=== PATIENT | male | born 1950 | race Caucasian/White ===

== ENCOUNTER 2020-08-28 08:22 | Emergency (ER) | payer MEDICARE, SELFPAY ==
--- NOTE | 2020-08-28 | ECG_ITS ---
Test Reason : CHEST PAIN Blood Pressure : / mmHG Vent. Rate : 081 BPM Atrial Rate : 081 BPM P-R Int : 158 ms QRS Dur : 086 ms QT Int : 366 ms P-R-T Axes : 024 -29 024 degrees QTc Int : 425 ms Normal sinus rhythm Normal ECG When compared with ECG of 04-JUN-2014 12:46, Nonspecific T wave abnormality has replaced inverted T waves in Inferior leads Referred By: Generic ED Physician Electronically Signed By:Per Mcdonald
--- NOTE | ~2020-08-28 | XR_ITS ---
EXAMINATION: XR CHEST CLINICAL INFORMATION: Chest pain/SOB COMPARISON: None TECHNIQUE: 2 views of the chest were obtained. FINDINGS: No significant abnormality is noted involving the heart, lungs, mediastinum, bony thorax or soft tissues. XR/XR chest 2V IMPRESSION: Unremarkable chest examination.
[2020-08-28 08:34] VITALS: BP 199/87; PULSE 101; TEMP 36.8; O2SAT 95; BMI 34.9
[2020-08-28 09:10] LABS: MANUAL DIFF FLAG NO
[2020-08-28 09:11] LABS: Basophils Percent Auto 0.5 % (0-2); Eosinophils Absolute Auto 0.1 X10*3/uL (0.0-0.4); Eosinophils Percent Auto 2.2 % (0-4); Hematocrit 44.7 % (42-52); Hemoglobin 15.4 g/dl (14.0-18.0); Imm Gran Abs Auto 0.01 X10*3/uL (0.00-0.03); Imm Gran Pct Auto 0.2 % (0.0-0.4); Lymphocytes Absolute Auto 1.1 X10*3/uL (1.2-4.9); Mean Corpuscular HGB Conc 34.5 g/dl (31.0-36.0); Mean Corpuscular Hemoglobin 30.1 pg (27.0-33.0); Mean Corpuscular Volume 87.3 fL (80-98); Mean Platelet Volume 10.3 fL (9.4-12.4); Monocytes Absolute Auto 0.4 X10*3/uL (0.1-1.2); Monocytes Percent Auto 9.6 % (2-11); Neutrophils Absolute Auto 2.6 X10*3/uL (2.0-8.3); Neutrophils Percent Auto 61.5 % (45-73); Platelet Count 152 X10*3/uL (160-400); Red Blood Count 5.12 X10*6/uL (4.60-5.80); Red Cell Distribution Width 12.1 % (11.0-16.0); White Blood Count 4.2 X10*3/uL (4.8-10.8)
[2020-08-28 09:22] VITALS: BP 160/79
[2020-08-28 09:35] LABS: Alanine Aminotransferase 19 U/L (0-40); Albumin Level 4.2 g/dL (3.5-5.0); Alkaline Phosphatase 46 U/L (39-117); Anion Gap 13 (12-20); Aspartate Amino Transferase 19 U/L (5-37); Bilirubin Direct 0.3 mg/dL (0.0-0.5); Bilirubin Total 0.7 mg/dL (0.0-1.0); Blood Urea Nitrogen 19 mg/dL (9-16); Calcium 9.6 mg/dL (8.4-10.2); Carbon Dioxide 25 mmol/L (22-29); Chloride 107 mmol/L (96-108); Creatinine Clr Calc Pharmacy 70.9; Estimated Glomerular Filt Rate 51; Glucose Random 137 mg/dL (60-115); Magnesium 2.2 mg/dL (1.6-2.6); Potassium 4.2 mmol/L (3.3-5.1); Sodium 141 mmol/L (135-145); Total Protein 7.1 g/dL (6.5-8.0)
[2020-08-28 09:38] LABS: B Type Natriuretic Peptide 68 pg/mL (<100); Troponin-I High Sensitivity 11.4 ng/L (<3.5-35.0)
--- NOTE | 2020-08-28 10:10 | ED_ITS ---
HPI - General Adult General Chief complaint: Dyspnea Stated complaint: Chest pain Time Seen by Provider: 08/28/20 08:34 Source: patient Mode of arrival: ambulatory History of Present Illness HPI narrative: 70-year-old male a past medical history of HTN, appendectomy, presenting to the ED complaining of left-sided chest tightness and SOB beginning last night. Admits symptoms improved at present. Reports believe symptoms related to increased stress at home due to taking care of father/[id number]. Denies fever, chills, cough, radiation of pain, nausea, vomiting, recent travel, LE edema, history of blood clots Onset (ago): day(s) Related Data Allergies Allergy/AdvReac Type Severity Reaction Status Date / Time No Known Allergies Allergy Unverified 10/29/19 14:35 Review of Systems Review of Systems: Constitutional: No Fever, No Chills, No Fatigue, No Malaise Cardiovascular: + Chest Pain, + SOB, No Dyspnea on Exertion, No Orthopnea, No Edema Respiratory: No Cough, No Sputum, No Wheezing Gastrointestinal: No Nausea, No Vomiting, No Abdominal pain Genitourinary: No Dysuria, No Urinary Frequency, No Hematuria, No Urgency, No Flank Pain Musculoskeletal: No joint pain, No Myalgias, No Joint Swelling Skin: No Skin Lesions, No rash Neuro: No Weakness, No Numbness, No Paresthesias Yes all other systems are reviewed and are negative [facility] Past Medical History Attestation statement: The following information was validated with the patient. Medical History (Updated 08/28/20 @ 12:37 by BRIJESH Vásquez) Appendicitis Hypertension Social History Social History Patient Tobacco Use Status: Never used Tobacco Use of substances other than those prescribed or required for medical reasons: No Advance Directives: No Advance Directives Information Provided: No Physical Exam Vital Signs: Vital Signs: Last Vital Signs Temp 98.1 F 08/28/20 11:55 Pulse 62 08/28/20 11:55 Resp 14 08/28/20 11:55 BP 150/76 H 08/28/20 11:55 Pulse Ox 95 08/28/20 11:55 Body Mass Index 34.9 Const: General: cooperative, healthy appearing and no acute distress Orientation/consciousness: patient oriented x3 Limitations: no limitations HENMT: Head: Yes normal to inspection Ears: hearing grossly normal bilaterally General nose exam: Normal external nose present Face and sinus: Yes normal facial exam Eyes: General: appearance normal, both eyes and all related structures EOM: EOMs intact bilaterally Neck: Neck: Yes normal visual inspection Resp: Effort & Inspection: normal respiratory effort Auscultation: clear to auscultation bilaterally, no rales, no rhonchi and no wheezes Cardio: Rate: regular rate Heart sounds: S1 normal heart sound present and S2 normal heart sound present GI: Inspection: Yes normal to inspection Palpation (GI): Soft to palpation, nontender, no guarding and not rigid Skin: Rashes: no rashes Wounds: no wounds Neuro: General: patient oriented x3 Extrem: General: Yes normal to inspection and Yes no pedal edema Course Course Course Narrative: -leukopenia of 4.2, H&H stable troponin 11.4 will obtain 3 nora r repeat -Subsequent troponin 12.5, no 50% rise NV unlikely XR chest 2V IMPRESSION: Unremarkable chest examination. -1236--results discussed with patient, denies chest pain at present. Worrisome signs and symptoms and strict return precautions discussed, he verbalized understanding and is safe for discharge home to follow-up with PCP/cardiology Medical Decision Making MDM Narrative Medical decision making narrative: 70-year-old male a past medical history of HTN, appendectomy, presenting to the ED complaining of left-sided chest tightness and SOB beginning last night. Admits symptoms improved at present. On exam slightly tachycardic, anxious, NAD/nontoxic, lungs CTA, no pedal edema or calf tenderness. Concern for ACS vs anxiety. Low concern for CHF, pneumonia. Plan: EKG, labs, CXR, reassess Lab Data Result diagrams: 08/28/20 09:05 08/28/20 09:05 Labs: Lab Results 08/28/20 08/28/20 08/28/20 Range/Units 09:05 09:05 09:05 WBC 4.2 L (4.8-10.8) X10*3/uL RBC 5.12 (4.60-5.80) X10*6/uL Hgb 15.4 (14.0-18.0) g/dl Hct 44.7 (42-52) % MCV 87.3 (80-98) fL MCH 30.1 (27.0-33.0) pg MCHC 34.5 (31.0-36.0) g/dl RDW 12.1 (11.0-16.0) % Plt Count 152 L (160-400) X10*3/uL MPV 10.3 (9.4-12.4) fL Immature Gran % (Auto) 0.2 (0.0-0.4) % Neut % (Auto) 61.5 (45-73) % Lymph % (Auto) 26.0 (20-40) % [place] % (Auto) 9.6 (2-11) % Eos % (Auto) 2.2 (0-4) % Baso % (Auto) 0.5 (0-2) % Lymph # (Auto) 1.1 L (1.2-4.9) X10*3/uL [place] # (Auto) 0.4 (0.1-1.2) X10*3/uL Eos # (Auto) 0.1 (0.0-0.4) X10*3/uL Baso # (Auto) 0.0 (0.0-0.2) X10*3/uL Abs Immat Gran (auto) 0.01 (0.00-0.03) X10*3/uL Absolute Neuts (auto) 2.6 (2.0-8.3) X10*3/uL Absolute Nucleated RBC 0.000 (0.0-0.012) X10*3/uL Nucleated RBC % (auto) 0.0 (0.0-0.2) /100WBC Sodium 141 (135-145) mmol/L Potassium 4.2 (3.3-5.1) mmol/L Chloride 107 (96-108) mmol/L Carbon Dioxide 25 (22-29) mmol/L Anion Gap 13 (12-20) BUN 19 H (9-16) mg/dL Creatinine 1.39 (0.5-1.4) mg/dL Estim Creat Clear Calc 70.9 Estimated GFR 51 Random Glucose 137 H (60-115) mg/dL Calcium 9.6 (8.4-10.2) mg/dL Magnesium 2.2 (1.6-2.6) mg/dL Total Bilirubin 0.7 (0.0-1.0) mg/dL Direct Bilirubin 0.3 (0.0-0.5) mg/dL AST 19 (5-37) U/L ALT 19 (0-40) U/L Alkaline Phosphatase 46 (39-117) U/L Troponin I High Sens 11.4 (<3.5-35.0) ng/L B-Natriuretic Peptide 68 (<100) pg/mL Total Protein 7.1 (6.5-8.0) g/dL Albumin 4.2 (3.5-5.0) g/dL 08/28/20 Range/Units 11:59 WBC (4.8-10.8) X10*3/uL RBC (4.60-5.80) X10*6/uL Hgb (14.0-18.0) g/dl Hct (42-52) % MCV (80-98) fL MCH (27.0-33.0) pg MCHC (31.0-36.0) g/dl RDW (11.0-16.0) % Plt Count (160-400) X10*3/uL MPV (9.4-12.4) fL Immature Gran % (Auto) (0.0-0.4) % Neut % (Auto) (45-73) % Lymph % (Auto) (20-40) % [place] % (Auto) (2-11) % Eos % (Auto) (0-4) % Baso % (Auto) (0-2) % Lymph # (Auto) (1.2-4.9) X10*3/uL [place] # (Auto) (0.1-1.2) X10*3/uL Eos # (Auto) (0.0-0.4) X10*3/uL Baso # (Auto) (0.0-0.2) X10*3/uL Abs Immat Gran (auto) (0.00-0.03) X10*3/uL Absolute Neuts (auto) (2.0-8.3) X10*3/uL Absolute Nucleated RBC (0.0-0.012) X10*3/uL Nucleated RBC % (auto) (0.0-0.2) /100WBC Sodium (135-145) mmol/L Potassium (3.3-5.1) mmol/L Chloride (96-108) mmol/L Carbon Dioxide (22-29) mmol/L Anion Gap (12-20) BUN (9-16) mg/dL Creatinine (0.5-1.4) mg/dL Estim Creat Clear Calc Estimated GFR Random Glucose (60-115) mg/dL Calcium (8.4-10.2) mg/dL Magnesium (1.6-2.6) mg/dL Total Bilirubin (0.0-1.0) mg/dL Direct Bilirubin (0.0-0.5) mg/dL AST (5-37) U/L ALT (0-40) U/L Alkaline Phosphatase (39-117) U/L Troponin I High Sens 12.5 (<3.5-35.0) ng/L B-Natriuretic Peptide (<100) pg/mL Total Protein (6.5-8.0) g/dL Albumin (3.5-5.0) g/dL ECG Data Attestation: I personally reviewed and interpreted this ECG as follows: Interpretation: EKG normal sinus rhythm with a rate of 81. QTC 425. 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
[2020-08-28 10:35] VITALS: BP 165/75
[2020-08-28 11:55] VITALS: BP 150/76; PULSE 62; RESP 14; TEMP 36.7; O2SAT 95
[2020-08-28 12:29] LABS: Troponin-I High Sensitivity 12.5 ng/L (<3.5-35.0)
== END 2020-08-28 12:47 | disposition home or self-care (01) ==
PROVIDERS: Physician Assistant; Emergency Provider Emergency Medicine; PCP Internal Medicine
DX: R07.9 Chest pain, unspecified (principal); R06.00 Dyspnea, unspecified; I10 Essential (primary) hypertension; Z79.899 Other long term (current) drug therapy
CPT/HCPCS: 36415; 71046; 80048; 80076; 83735; 83880; 84484; 85025; 93005; 99284

== ENCOUNTER 2020-10-20 06:48 | Outpatient (REF) | payer MEDICARE, SELFPAY ==
[2020-10-20 11:11] LABS: Basophils Percent Auto 0.5 % (0-2); Eosinophils Absolute Auto 0.1 X10*3/uL (0.0-0.4); Eosinophils Percent Auto 2.8 % (0-4); Hematocrit 44.3 % (42-52); Hemoglobin 15.2 g/dl (14.0-18.0); Imm Gran Abs Auto 0.01 X10*3/uL (0.00-0.03); Imm Gran Pct Auto 0.2 % (0.0-0.4); Lymphocytes Absolute Auto 1.5 X10*3/uL (1.2-4.9); Lymphocytes Percent Auto 34.2 % (20-40); MANUAL DIFF FLAG NO; Mean Corpuscular HGB Conc 34.3 g/dl (31.0-36.0); Mean Corpuscular Hemoglobin 30.2 pg (27.0-33.0); Mean Corpuscular Volume 88.1 fL (80-98); Monocytes Absolute Auto 0.5 X10*3/uL (0.1-1.2); Monocytes Percent Auto 11.2 % (2-11); Neutrophils Absolute Auto 2.2 X10*3/uL (2.0-8.3); Neutrophils Percent Auto 51.1 % (45-73); Platelet Count 156 X10*3/uL (160-400); Red Blood Count 5.03 X10*6/uL (4.60-5.80); Red Cell Distribution Width 12.8 % (11.0-16.0); White Blood Count 4.3 X10*3/uL (4.8-10.8)
[2020-10-20 11:31] LABS: Appearance Urine HAZY; Color Urine YELLOW; Glucose Urine UA NEG (NEG); Leukocyte Esterase Urine NEG (NEG); Nitrite Urine NEG (NEG); Specific Gravity - Urine >= 1.030 (1.005-1.025); Urine Blood 3+ (NEG); Urine Ketones NEG (NEG); Urine Protein NEG (NEG-TRACE)
[2020-10-20 11:37] LABS: Alanine Aminotransferase 21 U/L (0-40); Albumin Level 4.2 g/dL (3.5-5.0); Alkaline Phosphatase 45 U/L (39-117); Anion Gap 13 (12-20); Aspartate Amino Transferase 22 U/L (5-37); Bilirubin Total 0.7 mg/dL (0.0-1.0); Blood Urea Nitrogen 17 mg/dL (9-16); Calcium 9.6 mg/dL (8.4-10.2); Carbon Dioxide 24 mmol/L (22-29); Chloride 107 mmol/L (96-108); Cholesterol 131 mg/dL; Estimated Glomerular Filt Rate 53; Glucose Fasting 99 mg/dL (60-99); HDL Cholesterol 41 mg/dL; LDL Cholesterol Calculated 54 mg/dl; Potassium 4.1 mmol/L (3.3-5.1); Sodium 140 mmol/L (135-145); Total Protein 6.8 g/dL (6.5-8.0); Triglycerides 184 mg/dL
[2020-10-20 11:56] LABS: Squamous Epithelial Cell Urine TRACE /LPF; WBC Urine 0 /HPF (0-4)
[2020-10-20 11:57] LABS: Mucus Urine 3+ /LPF
[2020-10-20 12:05] LABS: Thyroid Stimulating Hormone 3.07 uIU/mL (0.32-4.0); Vitamin D 25-OH Total 47.6 ng/mL (>30)
[2020-10-20 12:34] LABS: PSA,Total (Free>4and<10) 1.04 ng/mL (0.00-4.00)
== END 2020-10-20 06:49 | disposition home or self-care (01) ==
LOC: HO.HMGCLDS 06:48
PROVIDERS: PCP Internal Medicine; Visit Provider Internal Medicine
DX: Z12.5 Encounter for screening for malignant neoplasm of prostate (principal); R07.9 Chest pain, unspecified; E78.00 Pure hypercholesterolemia, unspecified; E55.9 Vitamin D deficiency, unspecified; I10 Essential (primary) hypertension
CPT/HCPCS: 36415; 80053; 80061; 81001; 82306; 84153; 84443; 85025

== ENCOUNTER → 2020-11-15 13:49 | Outpatient (BNVA) | payer MEDICARE, SELFPAY | PROVIDERS: PCP Internal Medicine; Visit Provider Internal Medicine | DX: I10 Essential (primary) hypertension (principal); R07.2 Precordial pain | CPT/HCPCS: 99202 ==

== ENCOUNTER → 2021-01-09 08:11 | Outpatient (REF) | payer MEDICARE, SELFPAY ==
--- NOTE | ~2021-01-09 | NM_ITS ---
Exercise Myocardial perfusion study Indication: Precordial chest pain Technique: The patient was brought in for an exercise perfusion study on 01/09/2021. Patient performed exercise as per Lukas protocol and was injected 45 mCi of sestamibi was given intravenously one target HR was achieved. Images were obtained using the SPECT gamma camera interlaced with the gating device. Images were obtained in supine position. Resting perfusion study was performed on 01/10/2021. Patient was administered 45 mCi of sestamibi intravenously at rest. Images were then obtained in supine position. Images obtained with and without CT attenuation. Total DLP 117 mGy-cm. Images were processed with the software and compared side to side in short axis, horizontal long axis and vertical long axis views. Findings: The stress perfusion study showed non attenuated images show moderately reduced uptake in the basal inferior and basal septal wall of the LV myocardium. Remainder of the LV myocardium attenuation corrected show normal uptake of tracer in all segments of LV myocardium. The gated study shows normal LV systolic function with calculated LVEF of 71%. LV cavity is normal in size. The gated study shows normal systolic wall thickening and contraction of all segments. There is no transient ischemic dilation. Resting study shows non attenuated images show mildly reduced uptake in the entire inferior wall of the LV myocardium. Remainder of the LV myocardium is normally perfused. Attenuation corrected images show mildly reduced uptake in the apex of the LV myocardium. Gating at rest reveals normal systolic wall motion with ejection fraction at 62%. The findings are consistent with normal myocardial perfusion. NM/NM cardiolite stress test Impression: 1. Normal myocardial perfusion 2. Gated LVEF is 62% 3. Transient ischemic dilatation not present Stress EKG is negative for ischemia
--- NOTE | 2021-01-09 08:15 | CA_ITS ---
Acquisition Time: 2021-01-09 08:20:40 Total Exercise Time: 00:05:00 Test Indications: CP Medications: SEE CHART Protocol: KATHY Max HR: 144 BPM 96% of Pred: 150 BPM Max BP: 172/078 mmHG Max Work Load: 7.0 METS Exercise stress test with exercise 5 min of Kathy protocol, without anginal symptoms, with frequent PVCs, ventricular cuplets, one 5 beat NSVT, runs of ventricular bigeminy, with normotensive response to exercise, without EKG changes meeting criteria for ischemia. Nuclear images pending. Test reviewed with Dr Danielson. Referred By: Kal Danielson Overread By: HAYDEN ANDERSON
== END ==
LOC: HO.CARD 08:11
PROVIDERS: Visit Provider Internal Medicine
DX: R07.2 Precordial pain (principal)
CPT/HCPCS: 78452; 93017; A9500

== ENCOUNTER → 2021-01-26 07:17 | Outpatient (REF) | payer MEDICARE, SELFPAY ==
--- NOTE | 2021-01-26 07:19 | CA_ITS ---
Transthoracic Echocardiogram Patient (Last, First, Middle): Angel Crowley R Gender: Male Date of : 1950 Age: 70 Procedure Date: 01/26/2021 Procedure Type: Transthoracic Echocardiogram Location: OP Height: 190.5 cm Weight: 122.47 kg BSA: 2.49 m2 Heart Rate: bpm BP: 140 / 68 mmHg Memorial Counselor: FLETCHER Referring MD: Kal Danielson MD Japanese Professor: Lamont Fox MD Symptoms: I10 - Essential (primary) hypertension Study Quality: Good ECG Rhythm: Sinus Conclusions: - 1. Normal LV systolic function with impaired relaxation filling pattern 2. Mild aortic regurgitation 3. Normal RV systolic pressure 4. Mildly dilated ascending aorta 5. No pericardial effusion Findings Left Ventricle Normal left ventricular size, thickness, and systolic function. The visually estimated ejection fraction is between 60-65%. Spectral Doppler is indicative of an impaired relaxation filling pattern. E/E prime ratio is between 8 and 15 consistent with indeterminate filling pressures. There is mild septal asymmetric hypertrophy. Right Ventricle Normal right ventricular cavity size and systolic function. Atria The left atrium is likely dilated. There is no evidence of interatrial shunt. The right atrium is normal in size. Aortic Valve The aortic valve structure and function is likely normal. There is no aortic valve stenosis. There is mild aortic valve regurgitation. Mitral Valve There is mild anterior and posterior mitral leaflet thickening. There is trace mitral valve regurgitation. There is no mitral valve stenosis. Pulmonic Valve The pulmonic valve was not well visualized. Tricuspid Valve Likely normal tricuspid valve structure and function. There is mild tricuspid valve regurgitation. The right ventricular systolic pressure is normal. The right ventricular systolic pressure is 28 mmHg. Normal right atrial pressure. There is no evidence of pulmonary hypertension. Great Vessels The pulmonary artery was not well visualized. There is mild dilatation of the ascending aorta measuring 3.80 cm. Venous The inferior vena cava is normal in size and collapses greater than 50% with inspiration. Pericardium/Pleural There is no evidence of pericardial effusion. Prior Study Comparison no previous study in the last 5 years for comparison Measurements 2D Linear Measurements IVSd: 1.20 0.6-0.9/0.6-1.0 cm LVIDd: 5.89 3.9-5.3/4.2-5.9 cm LVIDd Index: 2.37 2.4-3.2/2.2-3.1 cm/m2 LVIDs: 3.11 2.0-3.6 cm LVPWd: 1.06 0.7-1.1 cm Ao Root: 3.30 2.1-3.5 cm LA Diam: 3.90 2.7-3.8/3.0-4.0 cm LAIDs Index: 1.57 1.5-2.3 cm/m2 LV Mass: 350.49 67-162/88-224 g LV Mass Index: 140.76 43-95/49-115 g/m2 LVOT Diam: 2.30 3.0+(-)1.3 cm 2D Systolic Function EF 4C: 61.90 >55% EF 2C: 75.30 >55% EF BiP: 68.30 >55% Mitral Valve MV Pk E: 0.53 MV PK A: 0.65 MV Decel Time: 201.00 E/A: 0.80 E'Lateral: 10.90 E'Medial: 7.07 E/E' Med: 7.50 E/E' Lat: 4.80 PHT: 59.00 MVA PHT: 3.73 Decel Coos: 2.63 Aortic Valve AoV Pk Sedrick: 1.74 AoV Pk Grad: 12.00 AI Pk Sedrick: 3.57 AI Coos: 1.65 LVOT LVOT Pk Sedrick: 1.25 LVOT Mn Sedrick: 0.90 LVOT VTI: 0.27 LVOT Pk Grad: 6.00 LVOT Mn Grad: 4.00 LVOT Diam: 2.30 LVOT Area: 4.15 Diastolic Function MV Pk E: 0.53 MV Pk A: 0.65 E/A: 0.80 E'Medial: 7.07 E/E' Med: 7.50 E' Laterial: 10.90 E/E' Lat: 4.80 Right Ventricle TVS' Sedrick: 18.00 Tricuspid Valve TR Pk Sedrick: 2.51 TR Pk Grad: 25.00 RA Press: 3.00 RVSP: 28.00 Great Vessels Aorta Ao Root-2D: 3.30 2.0-3.7 cm Ao Asc: 3.80 2.1-3.4 cm Updated in Other Vendor System with Status of Final Lamont Fox MD electronically signed on 01/27/2021 3:25:43 PM with status of Final
== END ==
LOC: HO.CARD 07:17
PROVIDERS: PCP Internal Medicine; Visit Provider Internal Medicine
DX: I10 Essential (primary) hypertension (principal)
CPT/HCPCS: 93306

== ENCOUNTER → 2021-02-13 09:06 | Outpatient (BNVA) | payer MEDICARE, SELFPAY | PROVIDERS: PCP Internal Medicine; Visit Provider Internal Medicine | DX: I35.1 Nonrheumatic aortic (valve) insufficiency (principal); I10 Essential (primary) hypertension; R07.2 Precordial pain | CPT/HCPCS: 99212 ==

== ENCOUNTER → 2021-06-19 09:06 | Outpatient (BNVA) | payer MEDICARE, SELFPAY | PROVIDERS: PCP Internal Medicine; Referring Provider Internal Medicine; Visit Provider Internal Medicine | DX: R07.2 Precordial pain (principal); I10 Essential (primary) hypertension; I35.1 Nonrheumatic aortic (valve) insufficiency; E78.5 Hyperlipidemia, unspecified | CPT/HCPCS: 99212 ==

== ENCOUNTER 2021-07-21 06:26 | Outpatient (REF) | payer MEDICARE, SELFPAY ==
[2021-07-21 11:42] LABS: MANUAL DIFF FLAG NO
[2021-07-21 12:06] LABS: Basophils Percent Auto 0.4 % (0-2); Eosinophils Absolute Auto 0.2 X10*3/uL (0.0-0.4); Eosinophils Percent Auto 2.8 % (0-4); Hematocrit 43.7 % (42.0-52.0); Hemoglobin 14.8 g/dl (14.0-18.0); Imm Gran Abs Auto 0.02 X10*3/uL (0.00-0.03); Imm Gran Pct Auto 0.4 % (0.0-0.4); Lymphocytes Absolute Auto 1.6 X10*3/uL (1.2-4.9); Lymphocytes Percent Auto 28.6 % (20-40); Mean Corpuscular HGB Conc 33.9 g/dl (31.0-36.0); Mean Corpuscular Hemoglobin 30.1 pg (27.0-33.0); Mean Platelet Volume 10.8 fL (9.4-12.4); Monocytes Absolute Auto 0.7 X10*3/uL (0.1-1.2); Monocytes Percent Auto 11.7 % (2-11); Neutrophils Absolute Auto 3.2 x10*3/uL (2.0-8.3); Neutrophils Percent Auto 56.1 % (45-73); Platelet Count 167 X10*3/uL (160-400); Red Blood Count 4.91 X10*6/uL (4.60-5.80); Red Cell Distribution Width 12.4 % (11.0-16.0); White Blood Count 5.6 X10*3/uL (4.8-10.8)
[2021-07-21 12:12] LABS: Alanine Aminotransferase 27 U/L (0-40); Albumin Level 4.3 g/dL (3.5-5.0); Alkaline Phosphatase 49 U/L (39-117); Anion Gap 12 (12-20); Aspartate Amino Transferase 21 U/L (5-37); Bilirubin Total 0.7 mg/dL (0.0-1.0); Blood Urea Nitrogen 20 mg/dL (9-16); Calcium 9.4 mg/dL (8.4-10.2); Carbon Dioxide 26 mmol/L (22-29); Chloride 106 mmol/L (96-108); Cholesterol 139 mg/dL; Estimated Glomerular Filt Rate 54; Glucose Fasting 104 mg/dL (60-99); HDL Cholesterol 41 mg/dL; LDL Cholesterol Calculated 63 mg/dl; Potassium 4.3 mmol/L (3.3-5.1); Sodium 140 mmol/L (135-145); Total Protein 7.3 g/dL (6.5-8.0); Triglycerides 177 mg/dL
== END 2021-07-21 06:27 | disposition home or self-care (01) ==
LOC: HO.HMGCLDS 06:26
PROVIDERS: PCP Internal Medicine; Visit Provider Internal Medicine
DX: I10 Essential (primary) hypertension (principal); E78.00 Pure hypercholesterolemia, unspecified
CPT/HCPCS: 36415; 80053; 80061; 85025

== ENCOUNTER 2021-10-14 07:02 | Emergency (ER) | payer MEDICARE, SELFPAY ==
[2021-10-14 07:38] VITALS: BP 153/72; PULSE 72; RESP 18; TEMP 36.7; O2SAT 94; BMI 33.7
--- NOTE | 2021-10-14 10:04 | ED.BACK ---
HPI - Back Pain/Injury General Chief Complaint: Back Pain/Injury Stated Complaint: Chronic Back Pain Time Seen by Provider: 10/14/21 10:01 Source: patient Mode of arrival: ambulatory History of Present Illness HPI Narrative: 71-year-old male with past medical history of HTN, rectal fissure, appendicitis, HLD, presenting to the ED complaining of left-sided low back pain worsening since yesterday. States had mild back pain all week, worsened yesterday after mowing the lawn, and bending over to put sock on this morning. States pain worse with movement. Denies direct trauma/ injury or fall, numbness, tingling, weakness, radiation of pain to abdomen/lower extremity, hematuria, urinary incontinence / retention, fever. Took ibuprofen this morning with mild relief MD elicited complaint: back pain Pertinent past history: prior back pain Onset (ago): day(s) Related Data Home Medications Medication Instructions Recorded Confirmed lisinopril 40 mg tablet 40 mg PO DAILY 11/15/20 06/19/21 Previous Rx's Medication Instructions Recorded amlodipine 10 mg tablet 10 mg PO DAILY #90 tabs 06/19/21 atorvastatin 20 mg tablet (Lipitor) 20 mg PO QPM #90 tabs 06/19/21 acetaminophen 500 mg tablet 500 mg PO Q6H PRN fever or pain 10/14/21 (Tylenol Extra Strength) #14 tabs cyclobenzaprine 5 mg tablet 5 mg PO Q8H PRN pain (scale score 10/14/21 7-10) 5 days #14 tabs lidocaine 5 % topical patch 1 patch topical DAILY PRN pain #30 10/14/21 (Lidoderm) ea naproxen 500 mg tablet 500 mg PO BID PRN pain 10 days #20 10/14/21 tabs Allergies Allergy/AdvReac Type Severity Reaction Status Date / Time No Known Allergies Allergy Verified 06/19/21 09:16 Review of Systems Review of Systems: Constitutional: No Fever, No Chills ENT/Mouth: No Ear Pain, No Nasal Congestion, No Sinus Pain, No sore throat, No Rhinorrhea, No Swallowing Difficulty Cardiovascular: No Chest Pain, No SOB Respiratory: No Cough, No Sputum, No Wheezing Gastrointestinal: No Nausea, No Vomiting, No Diarrhea, No Constipation, No Abdominal pain Genitourinary: No Dysuria, No Urinary Frequency, No Hematuria, No Urinary Incontinence/retention, No Urgency, No Flank Pain Musculoskeletal: + joint pain, No Myalgias, No Joint Swelling Skin: No Skin Lesions, No rash Neuro: No Weakness, No Numbness, No Paresthesias Yes all other systems are reviewed and are negative Constitutional: Constitutional: Reports as per [facility] Past Medical History Attestation statement: The following information was validated with the patient. Medical History Appendicitis History of rectal fissure Hypertension Other and unspecified hyperlipidemia Surgical History History of appendectomy Family History Family History Mother HTN (hypertension) Thyroid disease COPD (chronic obstructive pulmonary disease) CHF (congestive heart failure) Father Diabetes HTN (hypertension) Sister HTN (hypertension) Cerebral palsy Hypercholesteremia Brother Hypercholesteremia HTN (hypertension) Social History Social History Alcohol intake: never Patient Tobacco Use Status: Never used Tobacco Advance Directives: No Advance Directives Information Provided: No Physical Exam Vital Signs: Vital Signs: Last Vital Signs Temp 98.1 F 10/14/21 07:38 Pulse 72 10/14/21 07:38 Resp 18 10/14/21 07:38 BP 153/72 H 10/14/21 07:38 Pulse Ox 94 10/14/21 07:38 O2 Del Method 10/14/21 07:38 BMI result Body Mass Index 33.7 Const: General: cooperative, healthy appearing and no acute distress Orientation/consciousness: patient oriented x3 Limitations: no limitations HEENT: Head: Yes normal to inspection and Yes atraumatic Ears: hearing grossly normal bilaterally General nose exam: Normal external nose present Face and sinus: Yes normal facial exam Eyes: General: appearance normal, both eyes and all related structures EOM: EOMs intact bilaterally Neck: Neck: Yes normal visual inspection and Yes no meningeal signs Resp: Effort & Inspection: normal respiratory effort and no respiratory distress Auscultation: clear to auscultation bilaterally Cardio: Rate: regular rate Heart sounds: S1 normal heart sound present and S2 normal heart sound present : General: Yes no CVA tenderness Back/Spine/Pelvis: Other: No midline thoracic/lumbar spinous tenderness/step-off or deformity. + left-sided lower lumbar MSK tenderness to palpation, no erythema/ecchymosis Back: no CVA tenderness Skin: Rashes: no rashes Wounds: no wounds Neuro: General: patient oriented x3, tone normal and no meningeal signs Gait exam (Neuro): Normal gait present Extrem: Other: Strength intact throughout. No saddle anesthesia. Sensation intact to light touch. Neurovascular intact distally General: Yes normal to inspection MDM - Back Pain/Injury MDM Narrative Medical decision making narrative: 71-year-old male with past medical history of HTN, rectal fissure, appendicitis, HLD, presenting to the ED complaining of left-sided low back pain worsening since yesterday. on exam vital signs stable, NAD, nontoxic-appearing, physical exam as above, no midline spinous tenderness through or red flag symptoms. Concern for MSK pain /strain/muscle spasming. Low suspicion for cauda equina/cord compression, fracture, or renal stones/ pyelo Plan: Pain control, DC Differential Diagnosis Differential diagnosis: Likely lumbar radiculopathy and strain of lumbar region Medical Records Attestation: I reviewed the patient's medical records. Lab Data Attestation: I reviewed the patient's lab results. Discharge Plan Discharge Clinical Impression: Strain of lumbar region Patient Disposition: Home, Self-Care Instructions: Acute Low Back Pain (ED) Additional Instructions: Your pain is likely musculoskeletal Flexeril is a muscle relaxer, take at night as it makes you drowsy, do not drive, drink alcohol, or operate machinery while taking it Naproxen as an anti-inflammatory / pain medication, take with food Lidoderm patches are numbing patches, apply to painful area In addition take Tylenol at home If symptoms persist or worsen, pain becomes unbearable, you developed urinary retention or incontinence, or weakness return to the ED Prescriptions: New acetaminophen [Tylenol Extra Strength] 500 mg tablet 500 mg PO Q6H PRN (Reason: fever or pain) Qty: 14 0RF lidocaine [Lidoderm] 5 % adhesive patch,medicated 1 patch topical DAILY MDD remove after 12 hours PRN (Reason: pain) Qty: 30 0RF Rx Instructions: leave on most painful area for up to 12 hrs naproxen 500 mg tablet 500 mg PO BID PRN (Reason: pain) 10 Days Qty: 20 0RF cyclobenzaprine 5 mg tablet 5 mg PO Q8H PRN (Reason: pain (scale score 7-10)) 5 Days Qty: 14 0RF No Action lisinopril 40 mg tablet 40 mg PO DAILY amlodipine 10 mg tablet 10 mg PO DAILY Qty: 90 3RF atorvastatin [Lipitor] 20 mg tablet 20 mg PO QPM Qty: 90 3RF Referrals: Johnathon Magana DO [Primary Care Provider] - 1 week
[2021-10-14 11:25] VITALS: BP 148/80; PULSE 76; RESP 16; O2SAT 95
== END 2021-10-14 11:32 | disposition home or self-care (01) ==
PROVIDERS: Emergency Provider Emergency Medicine; PCP Internal Medicine
DX: S39.012A Strain of muscle, fascia and tendon of lower back, initial encounter (principal); X50.0XXA Overexertion from strenuous movement or load, initial encounter; I10 Essential (primary) hypertension; E78.5 Hyperlipidemia, unspecified; Z79.02 Long term (current) use of antithrombotics/antiplatelets; Z79.899 Other long term (current) drug therapy; Y93.H2 Activity, gardening and landscaping; Y92.017 Garden or yard in single-family (private) house as the place of occurrence of the external cause; Y99.9 Unspecified external cause status
CPT/HCPCS: 99283

== ENCOUNTER → 2021-12-25 15:04 | Outpatient (BNVA) | payer MEDICARE, SELFPAY | PROVIDERS: PCP Internal Medicine; Referring Provider Internal Medicine; Visit Provider Internal Medicine | DX: I35.1 Nonrheumatic aortic (valve) insufficiency (principal); I10 Essential (primary) hypertension; E78.5 Hyperlipidemia, unspecified | CPT/HCPCS: 93005; 99212 ==

== ENCOUNTER 2022-01-25 | Outpatient (REF) | payer MEDICARE, SELFPAY ==
--- NOTE | ~2022-01-25 | XR_ITS ---
EXAMINATION: XR KNEES STANDING, BILATERAL XR KNEE, RIGHT CLINICAL INFORMATION: Right knee pain. COMPARISON: MRI right knee 06/30/2025 and plain x-ray right knee 06/13/2015 TECHNIQUE: AP bilateral knee standing 1 view. Right knee 2 views. FINDINGS: AP BILATERAL KNEE: There is moderate reduction in the medial compartment joint space. Mild periarticular spurring is seen in the medial and lateral compartments of the right knee and medial compartment left knee. RIGHT KNEE: There is mild reduction in the patellofemoral compartment joint space with periarticular spurring and mild suprapatellar joint effusion. No loose bodies or bony erosive changes seen. No acute fracture or dislocation. XR/XR knee standing BI IMPRESSION: 1. 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 No loose bodies or bony erosive changes seen. 2. Mild degenerative changes medial and lateral compartment left knee.
--- NOTE | ~2022-01-25 | XR_ITS ---
EXAMINATION: XR KNEES STANDING, BILATERAL XR KNEE, RIGHT CLINICAL INFORMATION: Right knee pain. COMPARISON: MRI right knee 06/30/2025 and plain x-ray right knee 06/13/2015 TECHNIQUE: AP bilateral knee standing 1 view. Right knee 2 views. FINDINGS: AP BILATERAL KNEE: There is moderate reduction in the medial compartment joint space. Mild periarticular spurring is seen in the medial and lateral compartments of the right knee and medial compartment left knee. RIGHT KNEE: There is mild reduction in the patellofemoral compartment joint space with periarticular spurring and mild suprapatellar joint effusion. No loose bodies or bony erosive changes seen. No acute fracture or dislocation. XR/XR knee RT 2V IMPRESSION: 1. 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 No loose bodies or bony erosive changes seen. 2. Mild degenerative changes medial and lateral compartment left knee.
== END 2022-01-25 00:01 | disposition home or self-care (01) ==
LOC: HO.HOSX
PROVIDERS: Visit Provider Orthopaedic Surgery
DX: M17.11 Unilateral primary osteoarthritis, right knee (principal); S76.311A Strain of muscle, fascia and tendon of the posterior muscle group at thigh level, right thigh, initial encounter; M62.89 Other specified disorders of muscle
CPT/HCPCS: 73560; 73565; 99202

== ENCOUNTER 2022-03-08 07:00 | Outpatient (RCR) | payer MEDICARE, SELFPAY ==
--- NOTE | 2022-02-21 07:59 | MHC.PT.EP ---
[facility] [place] [facility] [place] [facility] [place] [facility] [address] Gregorio Nolasco [address] [phone] F: [phone] F: [phone] F: [phone] F: [phone] Physical Therapy Plan of Care Date of Evaluation: Date of Surgery: meniscectomy 15 years ago Diagnosis: Hamstring strain and OA of knee. Assessment: Patient is a 71 year old R handed male who presents with s/s consistent with R knee OA, R HS strain, knee pain. He takes care of his father and sister daily. He also likes to beck duck during the year. Patient past medical history includes OA. Current impairments include pain, posture, swelling, ROM, strength, joint mobility, activity tolerance and functional mobility. Functional limitations include decreased ability to walk, stand, kneel and beck. Patient is motivated with good rehab potential. Skilled PT will address impairments and functional limitations in order to achieve goals. Frequency and Duration: The patient will be seen 2x/week for 5 weeks Short Term Goals: I with HEP - 2 weeks AROM 0-120 - 3 weeks reduced swelling in knee (2 cm greater at evaluation) - 3 weeks Intermediate Goals: Modify hunting mechanics to reduce re-injury/re-aggravation - 5 weeks LEFS 60/80 - 5 weeks Strength 4+/5 grossly - 5 weeks Treatment Plan: Modalities to reduce pain, spasms and effusion. Manual therapy to restore motion and function. Therapeutic exercise to improve strength and flexibility. Neuromuscular re-education for posture and balance. Therapeutic activities to return to functional activities of daily living. Electronically signed by: Koffi Mcbride, PT Please sign and return to therapist. Thank you for your referral.
--- NOTE | 2022-04-20 09:12 | MHC.PT.EP ---
[facility] [place] Office [place] Office [place] Office [address] Gregorio Nolasco [address] [phone] F: [phone] F: [phone] F: [phone] F: [phone] Physical Therapy Plan of Care Date of Evaluation: Date of Surgery: meniscectomy 15 years ago Diagnosis: Hamstring strain and OA of knee. Assessment: Patient is a 71 year old R handed male who presents with s/s consistent with R knee OA, R HS strain, knee pain. He takes care of his father and sister daily. He also likes to beck duck during the year. Patient past medical history includes OA. Current impairments include pain, posture, swelling, ROM, strength, joint mobility, activity tolerance and functional mobility. Functional limitations include decreased ability to walk, stand, kneel and beck. Patient is motivated with good rehab potential. Skilled PT will address impairments and functional limitations in order to achieve goals. Frequency and Duration: The patient will be seen 2x/week for 5 weeks Short Term Goals: I with HEP - 2 weeks AROM 0-120 - 3 weeks reduced swelling in knee (2 cm greater at evaluation) - 3 weeks Fci Goals: Modify hunting mechanics to reduce re-injury/re-aggravation - 5 weeks LEFS 60/80 - 5 weeks Strength 4+/5 grossly - 5 weeks Treatment Plan: Modalities to reduce pain, spasms and effusion. Manual therapy to restore motion and function. Therapeutic exercise to improve strength and flexibility. Neuromuscular re-education for posture and balance. Therapeutic activities to return to functional activities of daily living. Electronically signed by: Koffi Mcbride, PT Please sign and return to therapist. Thank you for your referral.
== END 2022-04-20 09:12 | disposition home or self-care (01) ==
LOC: HO.PTCHIC 07:00
PROVIDERS: PCP Internal Medicine; Visit Provider Orthopaedic Surgery
DX: M17.11 Unilateral primary osteoarthritis, right knee (principal); S76.311D Strain of muscle, fascia and tendon of the posterior muscle group at thigh level, right thigh, subsequent encounter
CPT/HCPCS: 97110; 97140; 97161

== ENCOUNTER → 2022-04-12 13:18 | Outpatient (BNVA) | payer MEDICARE, SELFPAY | PROVIDERS: PCP Internal Medicine; Visit Provider Orthopaedic Surgery | DX: M17.11 Unilateral primary osteoarthritis, right knee (principal); S76.319D Strain of muscle, fascia and tendon of the posterior muscle group at thigh level, unspecified thigh, subsequent encounter | CPT/HCPCS: 20610; 99212; J1100 ==

== ENCOUNTER 2022-08-29 09:28 | Outpatient (AMB) | payer MEDICARE, SELFPAY ==
--- NOTE | 2022-08-29 09:37 | MHC.OFFVIS ---
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 His blood pressures while checked in the office are generally high but he states it is only because of anxiety. However, he does not check it at home to actually prove that is going back to normal. Patient any case, states when he goes to Dr. Magana, blood pressures are much lower and hence he strongly believes it is only from anxiety. Any case, no complaints like angina or shortness of breath or in fact anything cardiac sounding. Compliant with all his medications. No known coronary disease or cardiomyopathy. [facility] Medical History Appendicitis History of rectal fissure Hypertension Other and unspecified hyperlipidemia Surgical History History of appendectomy Family History Mother HTN (hypertension) Thyroid disease COPD (chronic obstructive pulmonary disease) CHF (congestive heart failure) Father Diabetes HTN (hypertension) Sister HTN (hypertension) Cerebral palsy Hypercholesteremia Brother Hypercholesteremia HTN (hypertension) Social History Alcohol intake: never Patient Tobacco Use Status: Never used Tobacco Current occupational status: retired Review of Systems Const Denies weakness ENT Denies dizziness Card Denies chest pain, Denies chest pain with activity, Denies syncope, Denies rapid heart rate, Denies pedal edema, Denies edema, Denies leg edema, Denies lightheadedness, Denies palpitations, Denies dyspnea, Denies dyspnea on exertion and Denies orthopnea Resp Denies cough, Denies dyspnea and Denies dyspnea on exertion GI Denies hematochezia and Denies change in stool character Musc Denies abnormal gait, Denies muscle cramps, Denies muscle weakness, Denies numbness, Denies radiating pain into limb and Denies tingling Neuro Denies abnormal gait, Denies dizziness, Denies syncope, Denies numbness, Denies tingling and Denies weakness Endo Denies palpitations Physical Exam Vital Signs: Last Vital Signs Pulse 76 08/29/22 09:38 BP 170/70 H 08/29/22 09:38 BMI result Body Mass Index 33.1 Const General: comfortable and no acute distress Orientation/consciousness: patient oriented x3 HEENT Other: Unremarkable Head: Yes normal to inspection Neck Neck: Yes normal visual inspection Chest Chest palpation & inspection: normal inspection of the chest Resp Auscultation: clear to auscultation bilaterally Cardio Palpation: normal PMI Heart sounds: S1 normal heart sound present, S2 normal heart sound present, no gallops, no murmurs and no rubs GI Palpation (GI): Soft to palpation Back/Spine/Pelvis Other: unremarkable Skin General skin exam: no rashes or lesions noted Neuro General: patient oriented x3 Extrem General: Yes normal to inspection Psych Mental Status: mental status grossly normal Assessment & Plan Assessment & Plan (1) Uncontrolled hypertension: Code(s): I10 - Essential (primary) hypertension (2) Non-rheumatic aortic regurgitation: Code(s): I35.1 - Nonrheumatic aortic (valve) insufficiency Plan Cardiac studies reviewed. Echocardiogram with normal LVEF, 60-65%; mild aortic regurgitation; ascending aorta measured at 3.8 cm which may be acceptable considering his height and weight. Myocardial perfusion imaging study did not show any ischemia or other significant findings. With regard to blood pressure, today's blood pressure is 170/70 mm Hg. Last time it was 144/62 mm Hg. Other pressures are in the 140s to 160s range on several occasions. According to patient, when he goes to Dr. Mcintyre Min it is only in the 130s. Unknown home blood pressures as he does not check them. Extensively discussed about implications of uncontrolled hypertension if indeed that is the case. However per patient is only from anxiety. Any case, counseled him to check his blood pressures at home regularly without any further delay. If it is completely normal range, then probably no further action. If not will need to optimize medications. Last time we did start spironolactone but patient stopped it due to side effects. He has some baseline bradycardia on the last EKG and may have to be cautious with beta-blockers. With regard to the mild aortic regurgitation on the last echocardiogram, may need some follow-up in due course. Ascending aortic size top normal but okay for his size. Patient advised to contact us with blood pressure readings and then we can make further changes as necessary. Follow-up in 6 months time. Total time spent including review of data, counseling, documentation, coordination of care-32 minutes. Coding Level of Care Code Est Pt Level 4 (78021) Diagnoses Uncontrolled hypertension I10 Non-rheumatic aortic regurgitation I35.1
[2022-08-29 09:38] VITALS: BP 170/70; PULSE 76; BMI 33.1
== END 2022-08-29 09:58 | disposition home or self-care (01) ==
PROVIDERS: PCP Internal Medicine; Referring Provider Internal Medicine; Visit Provider Internal Medicine
DX: I10 Essential (primary) hypertension (principal); I35.1 Nonrheumatic aortic (valve) insufficiency
CPT/HCPCS: 99214

== ENCOUNTER → 2022-08-29 09:28 | Outpatient (BNVA) | payer MEDICARE, SELFPAY | PROVIDERS: PCP Internal Medicine; Referring Provider Internal Medicine; Visit Provider Internal Medicine | DX: I35.1 Nonrheumatic aortic (valve) insufficiency (principal); I10 Essential (primary) hypertension | CPT/HCPCS: 99212 ==

== ENCOUNTER 2022-10-12 09:17 | Outpatient (AMB) | payer MEDICARE, SELFPAY ==
--- NOTE | 2022-10-12 09:19 | MHC.OFFVIS ---
Intake Intake Visit Reasons: OV - Right Knee Euflexxa #1 Intake Note: Angel is a 72 year old male who presents today for Right Knee Euflexxa #1 Allergies No Known Allergies Allergy (Verified 08/29/22 09:40) HPI OV - Right Knee Euflexxa #1 HPI Details Angel is a 72 year old man with moderate right knee OA who presents for his first Euflexxa injection today. He denies any changes in his symptoms or medical history. He says he can walk ~10-15 minutes at a time on a good day . He denies any pain at night and says he would like to delay potential surgery as long as possible. He says his pain is tolerable enough that he doesn't want to consider surgery just yet. [facility] Medical History Appendicitis History of rectal fissure Hypertension Other and unspecified hyperlipidemia Surgical History History of appendectomy Family History Mother HTN (hypertension) Thyroid disease COPD (chronic obstructive pulmonary disease) CHF (congestive heart failure) Father Diabetes HTN (hypertension) Sister HTN (hypertension) Cerebral palsy Hypercholesteremia Brother Hypercholesteremia HTN (hypertension) Social History Alcohol intake: never Patient Tobacco Use Status: Never used Tobacco Current occupational status: retired Review of Systems Const All systems reviewed & are unremarkable except as noted in HPI and below Physical Exam Const General: no acute distress, alert and awake Orientation/consciousness: patient oriented x3 HEENT Head: Yes normocephalic and Yes atraumatic Eyes EOM: EOMs intact bilaterally Resp Effort & Inspection: normal respiratory effort and able to speak in complete sentences Cardio Jugular venous distension: no JVD Skin General skin exam: turgor normal Rashes: no rashes Neuro General: patient oriented x3 Extrem Other: Right Knee: Skin C/D/I No effusion Psych Appearance: grossly normal Affect: normal affect Attitude: cooperative Office Procedures Joint Injection/Drain Joint Injection/Drain Details: Euflexxa. Site was prepped using aseptic technique. Patient tolerated the procedure well. Primary Site: right knee Approach Used: anterolateral Coding 43908 - Large joint Procedure code (CPT) selection complete Results Reviewed Results Reviewed: 10/12/22 09:22 Hyaluronate Sodium [Euflexxa] 20 mg INTRAARTIC .[facility] I personally reviewed relevant radiographs. Radiographs show moderate-severe tricompartmental osteoarthritis of the right knee Assessment & Plan Assessment & Plan (1) Osteoarthritis of right knee: Code(s): M17.11 - Unilateral primary osteoarthritis, right knee Plan: This is a 72 year old man with moderately severe right knee OA. He has pain with daily activity, worse with prolonged ambulation, stairs, or when driving. He is here today for his first Euflexxa injection. I injected his right knee today with viscosupplementation, which he tolerated well. He will follow up in 1 week for his second injection. Plan Scribed for Jaya Carrasco MD by Tristin Cooney, medical office specialist, on 10/12/22 at 9:35 AM, EST. Coding Level of Care Code Est Pt Level 2 (17470) Diagnoses Osteoarthritis of right knee M17.11 CPT Codes Coding - 00876 Large joint: 52211 - Large joint ([id number])
== END 2022-10-12 09:43 | disposition home or self-care (01) ==
PROVIDERS: PCP Internal Medicine; Visit Provider Orthopaedic Surgery
DX: M17.11 Unilateral primary osteoarthritis, right knee (principal)
CPT/HCPCS: 20610; 99214

== ENCOUNTER → 2022-10-12 09:17 | Outpatient (BNVA) | payer MEDICARE, SELFPAY | PROVIDERS: PCP Internal Medicine; Visit Provider Orthopaedic Surgery | DX: M17.11 Unilateral primary osteoarthritis, right knee (principal) | CPT/HCPCS: 20610; J7323 ==

== ENCOUNTER 2022-10-19 09:11 | Outpatient (AMB) | payer MEDICARE, SELFPAY ==
--- NOTE | 2022-10-19 09:20 | A.OFFVIS_ITS ---
Intake Intake Visit Reasons: OV - Right Knee Euflexxa #2 Intake Note: Angel is a 72 year old male who presents today for Right Knee Euflexxa #2 Allergies No Known Allergies Allergy (Verified 10/19/22 09:27) HPI OV - Right Knee Euflexxa #2 HPI Details Angel is a 72 year old man with moderate right knee OA who presents for his second Euflexxa injection today. He denies any changes in his symptoms or medical history. [facility] Medical History Appendicitis History of rectal fissure Hypertension Other and unspecified hyperlipidemia Surgical History History of appendectomy Family History Mother HTN (hypertension) Thyroid disease COPD (chronic obstructive pulmonary disease) CHF (congestive heart failure) Father Diabetes HTN (hypertension) Sister HTN (hypertension) Cerebral palsy Hypercholesteremia Brother Hypercholesteremia HTN (hypertension) Social History Alcohol intake: never Patient Tobacco Use Status: Never used Tobacco Current occupational status: retired Physical Exam Const General: no acute distress, alert and awake Orientation/consciousness: patient oriented x3 HEENT Head: Yes normocephalic and Yes atraumatic Eyes EOM: EOMs intact bilaterally Resp Effort & Inspection: normal respiratory effort and able to speak in complete sentences Cardio Jugular venous distension: no JVD Skin General skin exam: turgor normal Rashes: no rashes Neuro General: patient oriented x3 Extrem Other: Right Knee: Skin C/D/I No effusion Psych Appearance: grossly normal Affect: normal affect Attitude: cooperative Office Procedures Joint Injection/Drain Joint Injection/Drain Details: Injected Euflexxa. Site was prepped using aseptic technique. Patient tolerated the procedure well. Approach Used: anterolateral Coding 93812 - Large joint Procedure code (CPT) selection complete Results Reviewed Results Reviewed: 10/19/22 09:01 Hyaluronate Sodium [Euflexxa] 20 mg INTRAARTIC .[facility] Assessment & Plan Assessment & Plan (1) Osteoarthritis of right knee: Code(s): M17.11 - Unilateral primary osteoarthritis, right knee Plan: This is a 72 year old man with moderately severe right knee OA. He has pain with daily activity, worse with prolonged ambulation, stairs, or when driving. He is here today for his second Euflexxa injection. I injected his right knee today with viscosupplementation, which he tolerated well. He will follow up in 1 week for his final injection. Plan Scribed for Jaya Carrasco MD by Tristin Cooney, medical imaging technologist, on 10/19/22 at 9:45 AM, EST. Coding Level of Care Code Est Pt Level 2 (58038) Diagnoses Osteoarthritis of right knee M17.11 CPT Codes Coding - 97270 Large joint: 86111 - Large joint ([id number])
== END 2022-10-19 09:47 | disposition home or self-care (01) ==
PROVIDERS: PCP Internal Medicine; Visit Provider Orthopaedic Surgery
DX: M17.11 Unilateral primary osteoarthritis, right knee (principal)
CPT/HCPCS: 20610

== ENCOUNTER → 2022-10-19 09:11 | Outpatient (BNVA) | payer MEDICARE, SELFPAY | PROVIDERS: PCP Internal Medicine; Visit Provider Orthopaedic Surgery | DX: M17.11 Unilateral primary osteoarthritis, right knee (principal) | CPT/HCPCS: 20610; J7323 ==

== ENCOUNTER 2022-10-26 09:24 | Outpatient (AMB) | payer MEDICARE, SELFPAY ==
--- NOTE | 2022-10-26 09:31 | MHC.OFFVIS ---
Intake Intake Visit Reasons: OV - Right Knee Euflexxa #3 Intake Note: Angel is a 72 year old male who presents today for Right Knee Euflexxa #3. Allergies No Known Allergies Allergy (Verified 10/26/22 09:31) HPI OV - Right Knee Euflexxa #3 HPI Details 72-year-old male who presents in the office today for a follow up of right knee pain. He presents for his 3rd Euflexxa injection in a series of 3 in the right knee. [facility] Medical History Appendicitis History of rectal fissure Hypertension Other and unspecified hyperlipidemia Surgical History History of appendectomy Family History Mother HTN (hypertension) Thyroid disease COPD (chronic obstructive pulmonary disease) CHF (congestive heart failure) Father Diabetes HTN (hypertension) Sister HTN (hypertension) Cerebral palsy Hypercholesteremia Brother Hypercholesteremia HTN (hypertension) Social History Alcohol intake: never Patient Tobacco Use Status: Never used Tobacco Current occupational status: retired Review of Systems Const All systems reviewed & are unremarkable except as noted in HPI and below Physical Exam Const General: no acute distress, alert and awake Orientation/consciousness: patient oriented x3 HEENT Head: Yes normocephalic and Yes atraumatic Eyes EOM: EOMs intact bilaterally Resp Effort & Inspection: normal respiratory effort and able to speak in complete sentences Cardio Jugular venous distension: no JVD Skin General skin exam: turgor normal Rashes: no rashes Neuro General: patient oriented x3 Extrem Other: Right Knee: Skin C/D/I No effusion Psych Appearance: grossly normal Affect: normal affect Attitude: cooperative Office Procedures Joint Injection/Drain Joint Injection/Drain Primary Site: right knee Prep: site was prepped using aseptic technique, ethochloride spray was applied and injection warnings given Injected: in the joint (Euflexxa #3) Approach Used: anterolateral Procedure: The patient tolerated the procedure well, but had some pain with the injection and there was some relief with the local anesthesia Coding 99092 - Large joint Procedure code (CPT) selection complete Results Reviewed Results Reviewed: 09/15/23 09:23 Hyaluronate Sodium [Euflexxa] 20 mg INTRAARTIC .[facility] Assessment & Plan Assessment & Plan (1) Osteoarthritis of right knee: Code(s): M17.11 - Unilateral primary osteoarthritis, right knee Qualifiers: Osteoarthritis type: unspecified Qualified Code(s): M17.11 - Unilateral primary osteoarthritis, right knee Plan Mr. Crowley is a 72-year-old male who presents in the office today for a follow up of right knee pain. He presents for his 3rd Euflexxa injection in a series of 3 in the right knee. The patient was injection with his 3rd Euflexxa injection in the right knee. The patient was explained the risk, benefits, and alternatives to receiving this injection. After receiving consent for the injection, the patient had the procedure done while in office today. The patient tolerated the procedure well with no complications. Follow up will be PRN, or sooner if needed. Patient Instructions: Scribed for Nisa Doty PA-C by Kristi Real certified medical dosimetrist, on 10/26/2022 at 9:29 am, EST. Coding Level of Care Code Procedure Only Diagnoses Osteoarthritis of right knee, unspecified osteoarthritis type M17.11 Osteoarthritis type: unspecified CPT Codes Coding - 12250 Large joint: 38994 - Large joint ([id number])
== END 2022-10-26 09:43 | disposition home or self-care (01) ==
PROVIDERS: PCP Internal Medicine; Visit Provider Physician Assistant
DX: M17.11 Unilateral primary osteoarthritis, right knee (principal)
CPT/HCPCS: 20610

== ENCOUNTER → 2022-10-26 09:24 | Outpatient (BNVA) | payer MEDICARE, SELFPAY | PROVIDERS: PCP Internal Medicine; Visit Provider Physician Assistant | DX: M17.11 Unilateral primary osteoarthritis, right knee (principal) | CPT/HCPCS: 20610; J7323 ==

== ENCOUNTER 2023-03-12 08:48 | Outpatient (AMB) | payer MEDICARE, SELFPAY ==
[2023-03-12 08:53] VITALS: BP 162/70; PULSE 72; BMI 33.9
--- NOTE | 2023-03-12 08:53 | MHC.OFFVIS ---
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 He has a long history of hypertension which is probably multifactorial. His weight definitely has some role to play. However he is already stated that it is because of anxiety and that at other times it is not as high. He does not have any clear-cut symptoms like angina or shortness of breath. No known coronary disease or myocardial infarction. [facility] Medical History Appendicitis History of rectal fissure Hypertension Other and unspecified hyperlipidemia Surgical History History of appendectomy Family History Mother HTN (hypertension) Thyroid disease COPD (chronic obstructive pulmonary disease) CHF (congestive heart failure) Father Diabetes HTN (hypertension) Sister HTN (hypertension) Cerebral palsy Hypercholesteremia Brother Hypercholesteremia HTN (hypertension) Social History Alcohol intake: never Patient Tobacco Use Status: Never used Tobacco Current occupational status: retired Review of Systems Const Denies weakness ENT Denies dizziness Card Denies chest pain, Denies chest pain with activity, Denies syncope, Denies rapid heart rate, Denies pedal edema, Denies edema, Denies leg edema, Denies lightheadedness, Denies palpitations, Denies dyspnea, Denies dyspnea on exertion and Denies orthopnea Resp Denies cough, Denies dyspnea and Denies dyspnea on exertion GI Denies hematochezia and Denies change in stool character Musc Denies abnormal gait, Denies muscle cramps, Denies muscle weakness, Denies numbness, Denies radiating pain into limb and Denies tingling Neuro Denies abnormal gait, Denies dizziness, Denies syncope, Denies numbness, Denies tingling and Denies weakness Endo Denies palpitations Physical Exam Vital Signs: Last Vital Signs Pulse 72 03/12/23 08:53 BP 162/70 H 03/12/23 08:53 BMI result Body Mass Index 33.9 Const General: comfortable and no acute distress Orientation/consciousness: patient oriented x3 HEENT Other: Unremarkable Head: Yes normal to inspection Neck Neck: Yes normal visual inspection Chest Chest palpation & inspection: normal inspection of the chest Resp Auscultation: clear to auscultation bilaterally Cardio Palpation: normal PMI Heart sounds: S1 normal heart sound present, S2 normal heart sound present, no gallops, no murmurs and no rubs GI Palpation (GI): Soft to palpation Back/Spine/Pelvis Other: unremarkable Skin General skin exam: no rashes or lesions noted Neuro General: patient oriented x3 Extrem General: Yes normal to inspection Psych Mental Status: mental status grossly normal Office Procedures EKG Details: EKG with sinus rhythm at 72/Min; no significant ST-T changes and otherwise unremarkable. There is baseline artifact. Corrected QT calculated to be abnormal but doubt if that is the case. 16508-[id number], Complete Assessment & Plan Assessment & Plan (1) Uncontrolled hypertension: Code(s): I10 - Essential (primary) hypertension (2) Non-rheumatic aortic regurgitation: Code(s): I35.1 - Nonrheumatic aortic (valve) insufficiency Plan Cardiac studies reviewed. Echocardiogram with normal LVEF, 60-65%; mild aortic regurgitation; ascending aorta measured at 3.8 cm which may be acceptable considering his height and weight. Myocardial perfusion imaging study did not show any ischemia or other significant findings. With regard to blood pressures, he is currently on amlodipine 10 mg and lisinopril 40 mg daily. He is due for labs and he states he has request from PCP and he will go soon. In the past, spironolactone was tried but stopped because of side effects. He has had some bradycardia on EKG before but seems to be in the normal range today. Hence we can try Coreg 6.25 mg b.i.d.. New script is being sent. He can continue to monitor home blood pressures and report to us. We discussed about possible sleep apnea but patient states that he barely sleeps as he keeps getting up at nighttime due to taking care of his sister who has cerebral palsy. Follow-up in 6 months time. In the interim, he will contact us with blood pressure concerns. To get labs done before that, and send copy to us- discussed. Medications: New carvedilol (Coreg) must administer with a meal/food 6.25 mg PO BID 180 tabs 3RF 90 days Coding Level of Care Code Est Pt Level 4 (48267) Diagnoses Uncontrolled hypertension I10 Non-rheumatic aortic regurgitation I35.1 CPT Codes EKG - CPT: 59047-Xkrwdyforvtmamjaq, Complete ([id number])
== END 2023-03-12 09:15 | disposition home or self-care (01) ==
PROVIDERS: PCP Internal Medicine; Visit Provider Internal Medicine
DX: I10 Essential (primary) hypertension (principal); I35.1 Nonrheumatic aortic (valve) insufficiency
CPT/HCPCS: 93010; 99214

== ENCOUNTER → 2023-03-12 08:48 | Outpatient (BNVA) | payer MEDICARE, SELFPAY | PROVIDERS: PCP Internal Medicine; Visit Provider Internal Medicine | DX: I10 Essential (primary) hypertension (principal); I35.1 Nonrheumatic aortic (valve) insufficiency; Z79.899 Other long term (current) drug therapy | CPT/HCPCS: 93005; 99212 ==

== ENCOUNTER 2023-03-22 06:08 | Outpatient (REF) | payer MEDICARE, SELFPAY ==
[2023-03-22 11:40] LABS: MANUAL DIFF FLAG NO
[2023-03-22 11:41] LABS: Appearance Urine Clear; Color Urine Yellow; Glucose Urine UA Negative (Negative); Leukocyte Esterase Urine Negative (Negative); Nitrite Urine Negative (Negative); PH 5.5 (5.0-9.0); UMIC TRIGGER UA YES; Urine Blood Moderate (2+) (Negative); Urine Ketones Negative (Negative); Urine Protein Negative (Neg-Trace)
[2023-03-22 11:43] LABS: Basophils Percent Auto 0.6 % (0-2); Eosinophils Absolute Auto 0.2 X10*3/uL (0.0-0.4); Eosinophils Percent Auto 3.8 % (0-4); Hematocrit 43.7 % (42.0-52.0); Hemoglobin 14.9 g/dl (14.0-18.0); Imm Gran Abs Auto 0.01 X10*3/uL (0.00-0.03); Imm Gran Pct Auto 0.2 % (0.0-0.4); Lymphocytes Absolute Auto 1.5 X10*3/uL (1.2-4.9); Lymphocytes Percent Auto 30.4 % (20-40); Mean Corpuscular HGB Conc 34.1 g/dl (31.0-36.0); Mean Corpuscular Hemoglobin 30.3 pg (27.0-33.0); Mean Corpuscular Volume 88.8 fL (80.0-98.0); Mean Platelet Volume 11.2 fL (9.4-12.4); Monocytes Absolute Auto 0.5 X10*3/uL (0.1-1.2); Monocytes Percent Auto 11.3 % (2-11); Neutrophils Absolute Auto 2.6 x10*3/uL (2.0-8.3); Neutrophils Percent Auto 53.7 % (45-73); Platelet Count 165 X10*3/uL (160-400); Red Blood Count 4.92 X10*6/uL (4.60-5.80); Red Cell Distribution Width 12.6 % (11.0-16.0); White Blood Count 4.8 X10*3/uL (4.8-10.8)
[2023-03-22 11:49] LABS: Bacteria Urine None Seen (None Seen); Hyaline Casts Urine 0-2 /LPF (0-2); Squamous Epithelial Cell Urine 0-2 /HPF (0-2); WBC Urine 0-5 /HPF (0-5)
[2023-03-22 12:05] LABS: Alanine Aminotransferase 19 U/L (0-40); Albumin Level 4.2 g/dL (3.5-5.0); Alkaline Phosphatase 47 U/L (39-117); Anion Gap 11 (12-20); Aspartate Amino Transferase 19 U/L (5-37); Bilirubin Total 0.7 mg/dL (0.0-1.0); Blood Urea Nitrogen 20 mg/dL (9-16); Calcium 9.4 mg/dL (8.4-10.2); Carbon Dioxide 24 mmol/L (22-29); Chloride 108 mmol/L (96-108); Cholesterol 117 mg/dL (<200); Estimated Glomerular Filt Rate 55; Glucose Fasting 102 mg/dL (60-99); HDL Cholesterol 40 mg/dL (>40); LDL Cholesterol Calculated 48 mg/dL (<100); Sodium 139 mmol/L (135-145); Total Protein 7.1 g/dL (6.5-8.0); Triglycerides 147 mg/dL (<150)
[2023-03-22 12:13] LABS: PSA,Total (Free>4and<10) 1.09 ng/mL (0.00-4.00)
[2023-03-22 12:21] LABS: Thyroid Stimulating Hormone 2.49 uIU/mL (0.32-4.0); Vitamin D 25-OH Total 51.2 ng/mL (>30)
== END 2023-03-22 06:09 | disposition home or self-care (01) ==
LOC: HO.HMGCLDS 06:08
PROVIDERS: PCP Internal Medicine; Visit Provider Internal Medicine
DX: Z00.00 Encounter for general adult medical examination without abnormal findings (principal); I10 Essential (primary) hypertension; E78.00 Pure hypercholesterolemia, unspecified; E55.9 Vitamin D deficiency, unspecified; E66.09 Other obesity due to excess calories; Z12.5 Encounter for screening for malignant neoplasm of prostate
CPT/HCPCS: 36415; 80053; 80061; 81001; 82306; 84153; 84443; 85025

== ENCOUNTER 2023-09-16 08:52 | Outpatient (AMB) | payer MEDICARE, SELFPAY ==
--- NOTE | 2023-09-16 09:03 | MHC.OFFVIS ---
Vital Signs 09/16/23 09:06 Height 6 ft 3 in Weight 227 lb BMI 28.4 BP 160/80 H Blood Pressure Location Lt brachial Position Sitting Pulse 70 Pulse Source Pulse Oximeter Intake Visit Reasons: 6 mth f/up Allergies No Known Allergies Allergy (Verified 03/12/23 08:54) Medication List - Last Reconciled 09/16/23 by Kal Danielson MD acetaminophen (Tylenol Extra Strength) 500 mg PO Q6H PRN amlodipine 10 mg PO DAILY atorvastatin 20 mg PO QPM carvedilol (Coreg) 6.25 mg PO BID 90 days lisinopril 40 mg PO DAILY HPI Comments Details: Angel returns for follow-up regarding hypertension. He has a long history of hypertension. Suspect multifactorial etiology related to some combination of being overweight as well as anxiety. He strongly feels that the blood pressure was only when he comes here and is completely normal otherwise. Apparently primary care physician told him that his blood pressure was only the 120s when he went there. Hence not entirely clear as the variations. Otherwise, he states he is fine from cardiac and no symptoms whatsoever. [facility] Medical History Other and unspecified hyperlipidemia History of rectal fissure Hypertension Appendicitis Surgical History History of appendectomy Family History Mother HTN (hypertension) Thyroid disease COPD (chronic obstructive pulmonary disease) CHF (congestive heart failure) Father Diabetes HTN (hypertension) Sister HTN (hypertension) Cerebral palsy Hypercholesteremia Brother Hypercholesteremia HTN (hypertension) Social History Alcohol intake: never Patient Tobacco Use Status: Never used Tobacco Current occupational status: retired Review of Systems Const Denies weakness ENT Denies dizziness Card Denies chest pain, Denies chest pain with activity, Denies syncope, Denies rapid heart rate, Denies pedal edema, Denies edema, Denies leg edema, Denies lightheadedness, Denies palpitations, Denies dyspnea, Denies dyspnea on exertion and Denies orthopnea Resp Denies cough, Denies dyspnea and Denies dyspnea on exertion GI Denies hematochezia and Denies change in stool character Musc Denies abnormal gait, Denies muscle cramps, Denies muscle weakness, Denies numbness, Denies radiating pain into limb and Denies tingling Neuro Denies abnormal gait, Denies dizziness, Denies syncope, Denies numbness, Denies tingling and Denies weakness Endo Denies palpitations Physical Exam Vital Signs: Last Vital Signs Pulse 70 09/16/23 09:06 BP 160/80 H 09/16/23 09:06 BMI result Body Mass Index 28.4 Const General: comfortable and no acute distress Orientation/consciousness: patient oriented x3 HEENT Other: Unremarkable Head: Yes normal to inspection Neck Neck: Yes normal visual inspection Chest Chest palpation & inspection: normal inspection of the chest Resp Auscultation: clear to auscultation bilaterally Cardio Palpation: normal PMI Heart sounds: S1 normal heart sound present, S2 normal heart sound present, no gallops, no murmurs and no rubs GI Palpation (GI): Soft to palpation Back/Spine/Pelvis Other: unremarkable Skin General skin exam: no rashes or lesions noted Neuro General: patient oriented x3 Extrem General: Yes normal to inspection Psych Mental Status: mental status grossly normal Assessment & Plan Assessment & Plan (1) Essential hypertension: Code(s): I10 - Essential (primary) hypertension Category: Medical (2) Non-rheumatic aortic regurgitation: Code(s): I35.1 - Nonrheumatic aortic (valve) insufficiency Category: Medical Plan Cardiac studies reviewed. Echocardiogram with normal LVEF, 60-65%; mild aortic regurgitation; ascending aorta measured at 3.8 cm which may be acceptable considering his height and weight. Myocardial perfusion imaging study did not show any ischemia or other significant findings. For blood pressure, he is currently on amlodipine, lisinopril and carvedilol. In the past, spironolactone was tried but he had some side effects. We discussed about the blood pressure trend. Of note, almost all the blood pressures recorded in the clinic setting are high. However, patient states that at other times including at primary care physician's office, it is completely normal. He strongly feels that it is because of anxiety coming here. To clarify this further, we recommended a 24 hour blood pressure monitor but patient feels he would rather not do that. He is not too keen on home blood pressure checks either. He would really not want any further changes at this time and would like to leave things as they are. He is aware of consequences of uncontrolled hypertension. Has been discussed numerous times. We also discussed about possibility of sleep apnea in the past but he states he barely sleeps at nighttime as he keeps getting up to take care of a sister who has cerebral palsy. For future, he would like to just see his PCP. In that case, advised him to contact us with any concerns. Total time spent including review of data, counseling, documentation, coordination of care-31 minutes. Coding Level of Care Code Est Pt Level 4 (92944) Diagnoses Essential hypertension I10 Non-rheumatic aortic regurgitation I35.1
[2023-09-16 09:06] VITALS: BP 160/80; PULSE 70; BMI 28.4
== END 2023-09-16 10:19 | disposition home or self-care (01) ==
PROVIDERS: PCP Internal Medicine; Visit Provider Internal Medicine
DX: I10 Essential (primary) hypertension (principal); I35.1 Nonrheumatic aortic (valve) insufficiency
CPT/HCPCS: 99214

== ENCOUNTER → 2023-09-16 08:52 | Outpatient (BNVA) | payer MEDICARE, SELFPAY | PROVIDERS: PCP Internal Medicine; Visit Provider Internal Medicine | DX: I10 Essential (primary) hypertension (principal); I35.1 Nonrheumatic aortic (valve) insufficiency | CPT/HCPCS: 99212 ==

== ENCOUNTER 2023-12-03 09:15 | Outpatient (AMB) | payer MEDICARE, SELFPAY ==
--- NOTE | 2023-12-03 09:26 | AM.OFFWIN_ITS ---
Intake Vital Signs 12/03/23 09:27 Weight 283 lb BP 130/80 Blood Pressure Location Lt brachial Position Sitting Pulse 62 Pulse Source Pulse Oximeter Pulse Oximetry (%) 94 Oxygen Delivery Method Room Air Intake Visit Reasons: EP RT ear blocked up Intake Note: Patient here for right ear blocked up which has been present for about 2 days. Patient Tobacco Use Status: Never used Tobacco Allergies No Known Allergies Allergy (Verified 12/03/23 09:28) Do you need a note to return to daycare/school/sports/work: No HPI HPI Comments History of Present Illness Details Patient is a 73-year-old male complaining of right ear blockage. He states it started 3 days ago and he tried using Debrox drops without relief. He denies any pain or fevers in the ear. [facility] Medical History Other and unspecified hyperlipidemia History of rectal fissure Hypertension Appendicitis Surgical History History of appendectomy Family History Mother HTN (hypertension) Thyroid disease COPD (chronic obstructive pulmonary disease) CHF (congestive heart failure) Father Diabetes HTN (hypertension) Sister HTN (hypertension) Cerebral palsy Hypercholesteremia Brother Hypercholesteremia HTN (hypertension) Social History Alcohol intake: never Patient Tobacco Use Status: Never used Tobacco Current occupational status: retired Review of Systems Const All systems reviewed & are unremarkable except as noted in HPI and below Physical Exam Vital Signs: Last Vital Signs Pulse 62 12/03/23 09:27 BP 130/80 12/03/23 09:27 Pulse Ox 94 12/03/23 09:27 Oxygen Delivery Method Room Air 12/03/23 09:27 Const General: cooperative, healthy appearing, comfortable and no acute distress Orientation/consciousness: patient oriented x3 HEENT Head: Yes normal to inspection Ears: mastoids normal, Abnormal EAC present cerumen impaction on the right and unable to visualize TM (cerumen blockage) on the right General nose exam: Normal external nose present Face and sinus: Yes normal facial exam Resp Effort & Inspection: normal respiratory effort and able to speak in complete sentences Neuro General: patient oriented x3 Office Procedures Cerumen Removal From which ear canal was the cerumen removed: right Removal: irrigation Notes: patient tolerated procedure well, no complications and ear canal clear [id number] Irrigation/Lavage Assessment & Plan Assessment & Plan (1) Impacted cerumen of right ear: Code(s): H61.21 - Impacted cerumen, right ear Plan: Recommended using Debrox drops as a maintenance every 2-3 weeks. Plan see above Coding Level of Care Code New Pt Level 4 (57492) Diagnoses Impacted cerumen of right ear H61.21 CPT Codes Office Procedure - CPT: 13251-Qyq Irrigation/Lavage ([id number])
[2023-12-03 09:27] VITALS: BP 130/80; PULSE 62; O2SAT 94
== END 2023-12-03 10:36 | disposition home or self-care (01) ==
PROVIDERS: PCP Internal Medicine; Visit Provider Physician Assistant
DX: H61.21 Impacted cerumen, right ear (principal)

== ENCOUNTER → 2023-12-03 09:15 | Outpatient (BNVA) | payer MEDICARE, SELFPAY | PROVIDERS: PCP Internal Medicine; Visit Provider Physician Assistant | DX: H61.21 Impacted cerumen, right ear (principal) | CPT/HCPCS: 69209; 99202 ==

== ENCOUNTER 2024-04-06 08:51 | Outpatient (AMB) | payer MEDICARE, SELFPAY ==
--- NOTE | 2024-04-06 08:58 | A.OFFPC_ITS ---
Vital Signs 04/06/24 09:00 Height 6 ft 1.25 in Weight 283 lb BMI 37.1 BP 140/62 H Blood Pressure Location Rt brachial Pulse 65 Pulse Source Pulse Oximeter Temp 98.2 F Pulse Oximetry (%) 93 Intake Visit Reasons: 6 month f/u Intake Note: no other issues Allergies No Known Allergies Allergy (Verified 04/06/24 09:20) Medication List - Last Reconciled 04/06/24 by Indio Morin MD acetaminophen (Tylenol Extra Strength) 500 mg PO Q6H PRN amlodipine 10 mg PO DAILY atorvastatin 20 mg PO QPM carvedilol (Coreg) 6.25 mg PO BID 90 days cetirizine (Zyrtec) 10 mg PO DAILY PRN cholecalciferol (vitamin D3) 50 mcg PO DAILY lisinopril 40 mg PO DAILY cjxgnexl-gdj-FS-lycopen-lutein 0.4 mg-300 mcg- 250 mcg (Centrum Silver) 1 tab PO DAILY HPI 6 month f/u HPI Details 74-year-old male presents to the office to discuss his chronic medical conditions. Patient has developed a rash on his left lower extremity and would like it examined. He has had the rash for a few months. He had a similar rash in the right knee which has since faded. Patient is compliant with medications and reporting no side effects. He recently had blood work and would like to know the results of the same. U p-to-date on all his screening procedures. Able to function and do all activities of daily living. [facility] Medical History (Updated 04/06/24 @ 09:42 by Indio Morin MD) Hyperlipidemia LDL goal <100 Class 2 severe obesity with body mass index (BMI) of 35 to 39.9 with serious comorbidity Nummular eczema Other and unspecified hyperlipidemia History of rectal fissure Hypertension Appendicitis Surgical History History of appendectomy Family History Mother HTN (hypertension) Thyroid disease COPD (chronic obstructive pulmonary disease) CHF (congestive heart failure) Father Diabetes HTN (hypertension) Sister HTN (hypertension) Cerebral palsy Hypercholesteremia Brother Hypercholesteremia HTN (hypertension) Social History Alcohol intake: never Patient Tobacco Use Status: Never used Tobacco Current occupational status: retired Physical exam (Primary Care) Vital Signs: Last Vital Signs Temp 98.2 F 04/06/24 09:00 Pulse 65 04/06/24 09:00 BP 140/62 H 04/06/24 09:00 Pulse Ox 93 04/06/24 09:00 Care Plan Goal for BP management: Blood pressure is stable. Continue medica tions at same dosage. BMI result Body Mass Index 37.1 BMI Assessment/Plan discussion: High BMI High, discussed plan: lifestyle, weight reduction and dietary Tobacco/Smoking Status: Tobacco use Status Patient Tobacco Use Status Never used Tobacco 04/06/24 09:04 Const General: cooperative and healthy appearing Nutritional Appearance: well nourished Orientation/consciousness: patient oriented x3 Limitations: no limitations HENMT Head: Yes normal to inspection Eyes General: appearance normal, both eyes and all related structures Neck Neck: Yes normal visual inspection Chest Chest palpation & inspection: normal palpation of entire chest wall Resp Effort & Inspection: normal respiratory effort Neuro General: patient oriented x3 Extrem Other: Left leg: Circular erythematous area in the leg with overlying scales. 3 cm lesion. Edges are prominent. Coding Level of Care Code Est Pt Level 4 (67963) Complex EM visit Add On G2211 Diagnoses Essential hypertension I10 Nummular eczema L30.0 Class 2 severe obesity with body mass index (BMI) of 35 to 39.9 with serious comorbidity E66.812; E66.01 Hyperlipidemia LDL goal <100 E78.5 Assessment & Plan Assessment & Plan (1) Essential hypertension: Code(s): I10 - Essential (primary) hypertension Category: Medical Plan: BP is in range. Continue medications at same dosage. (2) Nummular eczema: Code(s): L30.0 - Nummular dermatitis Category: Medical Plan: Triamcinolone ointment ordered. Apply twice a day. If sx do not improve to follow up for a possible skin biopsy. (3) Class 2 severe obesity with body mass index (BMI) of 35 to 39.9 with serious comorbidity: Code(s): E66.812 - Obesity, class 2; E66.01 - Morbid (severe) obesity due to excess calories Category: Medical Plan: Counselling on the importance of diet and execise. (4) Hyperlipidemia LDL goal <100: Code(s): E78.5 - Hyperlipidemia, unspecified Category: Medical Plan: LDL in range.
[2024-04-06 09:00] VITALS: BP 140/62; PULSE 65; TEMP 36.8; O2SAT 93; BMI 37.1
--- OUTSIDE RECORDS SUMMARY | 2024-04-06 09:22 | XMS_ITS ---
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 Name Role Phone Johnathon Magana Primary Care Provider ALLERGIES No Known Allergies REASON FOR VISIT physical, annual visit MEDICATIONS Medication SIG (Take, Route, Frequency, Duration) Notes Start Date End Date Status Lisinopril 40 MG 1 tablet Orally Once a day Active Atorvastatin Calcium 20 MG 1 tablet Oral ly Once a day Active Vitamin D 1000 UNIT 2 tablets Orally Onc e a day Active Centrum Silver 1 tablet Orally Once a day Active ZyrTEC Allergy 10 MG 1 tablet as needed Orally Once a day 01/16/2012 Active Carvedilol 6.25 MG 1 tablet with food O rally Twice a day Active amLODIPine Besylate 10 MG 1 tablet Orall y Once a day Active SOCIAL HISTORY Tobacco Use: Social History Observation Description Date Details (start date - stop date) Never Smoker NA - NA Sex Assigned At : Social History Observation Description Sex Assigned At Unknown Tobacco Use/Smoking Question Answer Notes Patient is a nonsmoker Additional Findings: Tobacco Non-User Cu rrent non-smoker, currently using no form of tobacco Alcohol Screen Question Answer Notes Did you have a drink containing alcohol in the p ast year? No Points 0 Interpretation Negative VITAL SIGNS BMI 37.32 kg/m2 08/13/2023 Blood pressure systolic 128 mm Hg 08/13/19 24 Blood pressure diastolic 68 mm Hg 024 Heart Rate 52 /min 08/13/2023 Height 72.75 in 08/13/2023 Weight 281 lbs 08/13/2023 Encounters Encounter Location Date Provider Diagnosis Johnathon Magana DO, [facility] [address], [place] [id number] 08/13/2023 Johnathon Magana Encounter for genera l adult medical examination without abnormal findings Z00.00 ; Essential hypertension I10 ; Hypercholesterolemia E78.00 ; Vitamin D deficiency E55.9 and Other obesity due to excess calories E66.09 ASSESSMENTS Encounter Date Diagnosis Assessment Notes Treatment Notes Treatment Clinical Notes 08/13/2023 Encounter for jasmin l adult medical examination without abnormal findings (ICD-10 - Z00.00) Diet, exercise, weight loss 08/13/2023 Essential hypertensi on (ICD-10 - I10) 08/13/2023 Hypercholesterolemia (ICD-10 - E78.00) 08/13/2023 Vitamin D deficiency (ICD-10 - E55.9) 08/13/2023 Other obesity due to excess calories (ICD-10 - E66.09) Diet, exercise, weight loss. Needs to decrease his BMI. Goal weight loss of 15 pounds. Decrease carbohydrate intake. Exercise at least three times a week PLAN OF TREATMENT Medication Medication Name Sig Start Date Stop Date Notes Lisinopril 40 MG 1 tablet Orally Once a day Atorvastatin Calcium 20 MG 1 tablet Orally Once a day Vitamin D 1000 UNIT 2 tablets Orally Once a day Centrum Silver 1 tablet Orally Once a day ZyrTEC Allergy 10 MG 1 tablet as needed Orally Once a day 01/16/2012 Carvedilol 6.25 MG 1 tablet with food O rally Twice a day amLODIPine Besylate 10 MG 1 tablet Orally Once a day Treatment Notes Assessment Notes Encounter for general adult medical examination without abnormal findings Diet, exercise, weight loss Other obesity due to excess calories t, exercise, weight loss. Needs to decrease his BMI. Goal weight loss of 15 pounds. Decrease carbohydrate intake. Exercise at least three times a week Next Appt Details Follow Up: 1 Year, Reason: H &P Progress Notes * Examination Category Sub-Category Detail Notes General Examination GENERAL APPEARANCE: well dev eloped, well nourished, in no acute distress HEAD: normocephalic, atrau matic EYES: sclera non-icteric NECK/THYROID: neck supple, full ra nge of motion, no cervical lymphadenopathy, thyroid normal, no carotid bruit HEART: bradycardic rate, re gular rhythm, S1, S2 normal, no murmurs CHEST: normal LUNGS: clear to auscultatio n bilaterally ABDOMEN: soft, nontender, non distended, bowel sounds present, normal NEUROLOGIC: nonfocal, motor stre ngth normal upper and lower extremities, sensory exam intact SKIN: warm and dry EXTREMITIES: no edema PERIPHERAL PULSES: 2+ dorsalis pedis, 2 + posterior tibial MALE GENITOURINARY no hernia, no penile lesions or discharge, no testicular mass, testes descended bilaterally PSYCH: alert, oriented, cog nitive function intact, cooperative with exam, good eye contact History and Physical Notes * HPI (History of Present Illness) Category Sub-Category Detail Notes Depression Screening PHQ-9 Little inte rest or pleasure in doing things: Not at all Feeling down, depressed, or hopeless: No t at all Trouble falling or staying asleep, or sl eeping too much: Not at all Feeling tired or having little energy: N ot at all Poor appetite or overeating: Not at all Feeling bad about yourself o r that you are a failure, or have let yourself or your family down: Not at all Trouble concentrating on thi ngs, such as reading the newspaper or watching television: Not at all Moving or speaking so slowly that other people could have noticed; or the opposite, being so fidgety or restless that you have been moving around a lot more than usual: Not at all Thoughts that you would be b beth off or of hurting yourself in some way: Not at all Total Score: 0 Interpretation and Intervention Depression Talia rhodes Findings: Negative Follow-Up for Depression: : Review of PH Q-9 found negative result; no follow-up needed Fall Risk Fall History Have you had two or more fal ls in the past year?: No Have you had any falls with injury in e past year?: No Fall Risk Assessment:: No falls in the p ast year Communication Needs [facility] Communication Needs - [facility] Hearing Impairment?: Yes is currently not interested in wearing hearing aids Vision Impairment?: Yes wears glasses Cognitive Impairment?: No SDOH Questions SDOH Questions In the past year have you been worried about losing your housing?: No In the past year have you or any family members you live with been unable to get any of the following when it was really needed? Check all that apply:: None
== END 2024-04-06 09:23 | disposition home or self-care (01) ==
LOC: HO.HMCSH 08:51
PROVIDERS: PCP Internal Medicine; Visit Provider Internal Medicine
DX: I10 Essential (primary) hypertension (principal); L30.0 Nummular dermatitis; E66.812 Obesity, class 2; E66.01 Morbid (severe) obesity due to excess calories; E78.5 Hyperlipidemia, unspecified

== ENCOUNTER → 2024-04-06 08:51 | Outpatient (BNVA) | payer MEDICARE, SELFPAY | PROVIDERS: PCP Internal Medicine; Visit Provider Internal Medicine | DX: I10 Essential (primary) hypertension (principal); L30.0 Nummular dermatitis; E66.01 Morbid (severe) obesity due to excess calories; E78.5 Hyperlipidemia, unspecified | CPT/HCPCS: 99212 ==

== ENCOUNTER 2024-12-28 10:21 | Outpatient (AMB) | payer MEDICARE, SELFPAY ==
[2024-12-28 10:38] VITALS: BP 157/68; PULSE 66; RESP 16; TEMP 36.5; O2SAT 96; BMI 35.4
--- NOTE | 2024-12-28 10:38 | MHC.PC.OV ---
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 Required: No Accompanied by: Self / Same As Patient Allergies No Known Allergies Allergy (Verified 12/28/24 10:38) Tobacco use date assessed: 12/28/24 Dental Screening Dental Screen Date: 12/28/24 Did you have a dental visit in the last 12 months?: Yes Did you have a dental problem in the last 6 months where you did not have access to dental care?: No Was dental information given to patient?: Patient has dentist HPI HPI Comments History of Present Illness Details History of Present Illness - The patient is a 74-year-old male presenting for a follow-up visit for management of chronic conditions and medication refills. - The patient reports recurrent eczema, which improves with cream but then returns. - He notes a recent flare-up on the leg where he had a knee replacement. - Following his knee replacement, the patient developed numbness in both hands, weakness in his fingers, and a loss of dexterity, which affects activities such as tying his shoes. - A nerve test revealed bilateral carpal tunnel syndrome and a pinched nerve, and he has an appointment with a surgeon to discuss these findings on January 21. - His chronic medical conditions include hypertension and hyperlipidemia, managed with amlodipine, carvedilol, lisinopril, and a statin. - He reports needing refills for his medications, with approximately one week of his statin remaining. - The patient has not had blood work done in a while. - He denies any prostate issues or difficulty urinating. - He declines the influenza vaccine, stating he has never had one and has never had the flu. Social History - Exercise: The patient is active with duck hunting and was advised to exercise regularly. - Firearm Ownership: The patient owns a firearm for hunting. - Diet: The patient was advised to maintain control over his diet. - Functional Status: The patient drives at night but dislikes it, especially in the rain. - He experiences difficulty with fine motor tasks, such as tying his shoes, due to hand weakness and loss of dexterity. Results - Nerve Conduction Study: Results were consistent with bilateral carpal tunnel syndrome and a pinched nerve. [facility] Medical History Hyperlipidemia LDL goal <100 Class 2 severe obesity with body mass index (BMI) of 35 to 39.9 with serious comorbidity Nummular eczema Other and unspecified hyperlipidemia History of rectal fissure Hypertension Appendicitis Surgical History History of colonoscopy (~06/17/14) History of appendectomy Family History Mother HTN (hypertension) Thyroid disease COPD (chronic obstructive pulmonary disease) CHF (congestive heart failure) Father Diabetes HTN (hypertension) Sister HTN (hypertension) Cerebral palsy Hypercholesteremia Brother Hypercholesteremia HTN (hypertension) Social History Housing: House Alcohol intake: never Patient Tobacco Use Status: Never used Tobacco Current occupational status: retired Cognitive needs: No Hearing needs: No Vision needs: No Questionnaire PHQ-9 Over the last 2 weeks, how often have you been bothered by any of the following problems? 1. Little interest or pleasure in doing things: not at all 2. Feeling down, depressed, or hopeless: not at all 3. Trouble falling or staying asleep, or sleeping too much: not at all 4. Feeling tired or having little energy: not at all 5. Poor appetite or overeating: not at all 6. Feeling bad about yourself - or that you are a failure or have let yourself or your family down: not at all 7. Trouble concentrating on things, such as reading the newspaper or watching television: not at all 8. Moving or speaking so slowly that other people could have noticed. Or the opposite - being so fidgety or restless that you have been moving around a lot more than usual: not at all 9. Thoughts that you would be better off or of hurting yourself in some way: not at all Total score: 0 Source: Developed by Drs. Johnathon Palacio, Priscila Beltrán, Sunil Brenner and colleagues, with an educational hilary from [employer]. Thrive Questionnaire Date Thrive assessed: 12/28/24 I am a: Patient What is your living situation today?: I have a steady place to live Within the past 12 months, did the food you bought not last and you didn't have the money to get more?: Never true Within the past 12 months, did you worry whether your food would run out before you got money to buy more?: Never true Do you have trouble paying for medicines?: No Do you have trouble getting transportation to medical appointments?: No Do you have trouble paying your heating and electricity bill?: No Do you have trouble taking care of your child, family member or friend?: No Do you have trouble with day-to-day activities such as bathing, preparing meals, shopping, managing finances, etc.?: No Are you currently unemployed and looking for a job?: No Are you interested in more education?: No Please select the resources that you would like help with: None THRIVE Score: 0 AUDIT C Alcohol Use Questionnaire (AUDIT-C) 1. How often do you have a drink containing alcohol?: Never 3. How often do you have six or more drinks on one occasion?: Never Total Score: 0 SHANIKA-7 AMB Questionnaire SHANIKA-7 Date SHANIKA - 7 assessed: 12/28/24 Feeling nervous, anxious, or on edge: 0 = Not at all Not being able to stop or control worryin = Not at all Worrying too much about different things: 0 = Not at all Trouble relaxin = Not at all Being so restless that it is hard to sit still: 0 = Not at all Becoming easily annoyed or irritable: 0 = Not at all Feeling afraid as if something awful might happen: 0 = Not at all Total SHANIKA-7 score (0-4 normal; 5-9 mild; 10-14 moderate; 15-21 severe): 0 Source: Developed by Drs. Johnathon Palacio, Priscila Beltrán, Sunil Brenner and colleagues, with an educational hilary from [employer]. Review of Systems Narrative Review of Systems - Integumentary: Reports recurrent eczema. - Neurological: Reports numbness in both hands, weakness, and loss of dexterity in his fingers. - Vision: Reports good vision, denies seeing halos, but dislikes driving at night, particularly in the rain. - Genitourinary: Denies prostate issues or difficulty urinating. - Constitutional: Reports feeling in good health and denies any pain on examination. Physical exam (Primary Care) Vital Signs: Last Vital Signs Temp 97.7 F 12/28/24 10:38 Pulse 66 12/28/24 10:38 Resp 16 12/28/24 10:38 BP 157/68 H 12/28/24 10:38 Pulse Ox 96 12/28/24 10:38 Oxygen Delivery Method Room Air 12/28/24 10:38 BMI result Body Mass Index 35.4 Tobacco/Smoking Status: Tobacco use Status Tobacco use date assessed 12/28/24 12/28/24 10:39 Patient Tobacco Use Status Never used Tobacco 12/28/24 10:39 PHQ-9: PHQ-9 Score PHQ-9: Total score 0 12/28/24 10:46 Thrive Assessment: Date of Thrive Assessment Date Thrive assessed 12/28/24 12/28/24 10:39 Narrative Physical Exam General: Appearance normal, both eyes and all related structures Nutritional Appearance: Well nourished Orientation/consciousness: Patient oriented x3 Limitations: Numbness at both knees, lost dexterity and weakness in fingers Head: Normal to inspection Neck: Normal visual inspection Chest: Normal palpation of entire chest wall Respiratory: Normal respiratory effort Neurology: Patient oriented x3, numbness at both knees, lost dexterity and weakness in fingers Office Procedures Flu Questionnaire Does the patient have a severe egg allergy?: No Does the patient have severe life threatening allergies?: No Does the patient have a fever or illness today?: No Has the patient ever had Guillain-[place] Syndrome?: No Has the patient ever had any past reaction to a flu shot?: No Immunizations Fluarix [id number] (PF) 45 mcg (15 mcg x 3)/0.5 mL IM syringe Performing Provider: Indio Morin MD [facility] [place] Documented (not given) by: PRETTY Chris on 12/28/24 10:47 Reason Not Given: Patient Refused Coding Level of Care Code Est Pt Level 4 (96345) Complex EM visit Add On G2211 Diagnoses Essential hypertension I10 Non-rheumatic aortic regurgitation I35.1 Assessment & Plan Assessment & Plan (1) Essential hypertension: Code(s): I10 - Essential (primary) hypertension Category: Medical Plan: History of Present Illness - The patient is a 74-year-old male presenting for a follow-up visit for management of chronic conditions and medication refills. - The patient reports recurrent eczema, which improves with cream but then returns. - He notes a recent flare-up on the leg where he had a knee replacement. - Following his knee replacement, the patient developed numbness in both hands, weakness in his fingers, and a loss of dexterity, which affects activities such as tying his shoes. - A nerve test revealed bilateral carpal tunnel syndrome and a pinched nerve, and he has an appointment with a surgeon to discuss these findings on January 21. - His chronic medical conditions include hypertension and hyperlipidemia, managed with amlodipine, carvedilol, lisinopril, and a statin. - He reports needing refills for his medications, with approximately one week of his statin remaining. - The patient has not had blood work done in a while. - He denies any prostate issues or difficulty urinating. - He declines the influenza vaccine, stating he has never had one and has never had the flu. Social History - Exercise: The patient is active with duck hunting and was advised to exercise regularly. - Firearm Ownership: The patient owns a firearm for hunting. - Diet: The patient was advised to maintain control over his diet. - Functional Status: The patient drives at night but dislikes it, especially in the rain. - He experiences difficulty with fine motor tasks, such as tying his shoes, due to hand weakness and loss of dexterity. Review of Systems - Integumentary: Reports recurrent eczema. - Neurological: Reports numbness in both hands, weakness, and loss of dexterity in his fingers. - Vision: Reports good vision, denies seeing halos, but dislikes driving at night, particularly in the rain. - Genitourinary: Denies prostate issues or difficulty urinating. - Constitutional: Reports feeling in good health and denies any pain on examination. Physical Exam General: Appearance normal, both eyes and all related structures Nutritional Appearance: Well nourished Orientation/consciousness: Patient oriented x3 Limitations: Numbness at both knees, lost dexterity and weakness in fingers Head: Normal to inspection Neck: Normal visual inspection Chest: Normal palpation of entire chest wall Respiratory: Normal respiratory effort Neurology: Patient oriented x3, numbness at both knees, lost dexterity and weakness in fingers Results - Nerve Conduction Study: Results were consistent with bilateral carpal tunnel syndrome and a pinched nerve. Plan - Eczema: A 6-month prescription refill for the topical cream will be sent to the patient's pharmacy. - Hyperlipidemia: A 6-month prescription refill for the statin medication will be sent to the pharmacy. - Health Maintenance: An order for fasting blood work, which includes a prostate test, will be placed. - Bilateral carpal tunnel syndrome: The patient will proceed with his scheduled appointment with a surgeon on January 21 to discuss his nerve test results and symptoms. - Lifestyle Counseling: Advised the patient to maintain a controlled diet and exercise regularly. - Immunizations: The patient declined the influenza vaccine; this decision was acknowledged. Discussion Notes I advised the patient that eczema is a chronic condition that is managed rather than cured. I have sent 6-month prescription refills for his eczema cream and statin to his pharmacy at [facility] on [facility] [address]. I also placed an order for fasting blood work, to include prostate screening, and instructed him to go to the lab on [facility]. We discussed his new symptoms of hand numbness and weakness, and I acknowledged his upcoming surgical consultation on January 21 regarding the nerve test findings of bilateral carpal tunnel and a pinched nerve. I counseled him on the importance of diet control and regular exercise. The patient declined the flu shot, and I respected his decision. Patient Instructions - Go to the lab on [facility] for blood work. - You must be fasting, which means nothing to eat or drink after midnight before your test. - Prescription refills for your eczema cream and statin medication have been sent to your pharmacy. - Keep your appointment with the surgeon on January 21 to discuss your hand numbness and weakness. - Continue to control your diet and exercise regularly. (2) Non-rheumatic aortic regurgitation: Code(s): I35.1 - Nonrheumatic aortic (valve) insufficiency Category: Medical Plan Plan - Eczema: A 6-month prescription refill for the topical cream will be sent to the patient's pharmacy. - Hyperlipidemia: A 6-month prescription refill for the statin medication will be sent to the pharmacy. - Health Maintenance: An order for fasting blood work, which includes a prostate test, will be placed. - Bilateral carpal tunnel syndrome: The patient will proceed with his scheduled appointment with a surgeon on January 21 to discuss his nerve test results and symptoms. - Lifestyle Counseling: Advised the patient to maintain a controlled diet and exercise regularly. - Immunizations: The patient declined the influenza vaccine; this decision was acknowledged. Discussion Notes I advised the patient that eczema is a chronic condition that is managed rather than cured. I have sent 6-month prescription refills for his eczema cream and statin to his pharmacy at [facility] on [address] . I also placed an order for fasting blood work, to include prostate screening, and instructed him to go to the lab on [address] . We discussed his new symptoms of hand numbness and weakness, and I acknowledged his upcoming surgical consultation on January 21 regarding the nerve test findings of bilateral carpal tunnel and a pinched nerve. I counseled him on the importance of diet control and regular exercise. The patient declined the flu shot, and I respected his decision. Patient Instructions - Go to the lab on [address] for blood work. - You must be fasting, which means nothing to eat or drink after midnight before your test. - Prescription refills for your eczema cream and statin medication have been sent to your pharmacy. - Keep your appointment with the surgeon on January 21 to discuss your hand numbness and weakness. - Continue to control your diet and exercise regularly. Orders: Orders Influenza [id number] Immunization Today Z23 - Encounter for immunization Basic Metabolic Panel Today I10 - Essential (primary) hypertension, I35.1 - Nonrheumatic aortic (valve) insufficiency Liver Panel Today I10 - Essential (primary) hypertension, I35.1 - Nonrheumatic aortic (valve) insufficiency Thyroid Stimulating Hormone Today I10 - Essential (primary) hypertension, I35.1 - Nonrheumatic aortic (valve) insufficiency Complete Blood Count no Diff Today I10 - Essential (primary) hypertension, I35.1 - Nonrheumatic aortic (valve) insufficiency Lipid Panel Today I10 - Essential (primary) hypertension, I35.1 - Nonrheumatic aortic (valve) insufficiency UA and rflx microscopic Today I10 - Essential (primary) hypertension, I35.1 - Nonrheumatic aortic (valve) insufficiency Prostate Specific Antigen Scr Today I10 - Essential (primary) hypertension, I35.1 - Nonrheumatic aortic (valve) insufficiency Medications: Refilled triamcinolone acetonide 0.025% 1 appl topical BID 15 grams 0RF atorvastatin 20 mg PO QPM 90 tabs 1RF
== END 2024-12-28 10:59 | disposition home or self-care (01) ==
LOC: HO.HMCSH 10:22
PROVIDERS: PCP Internal Medicine; Visit Provider Internal Medicine
DX: I10 Essential (primary) hypertension (principal); I35.1 Nonrheumatic aortic (valve) insufficiency; Z23 Encounter for immunization

== ENCOUNTER → 2024-12-28 10:21 | Outpatient (BNVA) | payer MEDICARE, SELFPAY | PROVIDERS: PCP Internal Medicine; Visit Provider Internal Medicine | DX: I10 Essential (primary) hypertension (principal); L30.9 Dermatitis, unspecified; E78.5 Hyperlipidemia, unspecified; G56.03 Carpal tunnel syndrome, bilateral upper limbs; I35.1 Nonrheumatic aortic (valve) insufficiency; Z28.9 Immunization not carried out for unspecified reason | CPT/HCPCS: 90471; 96127; 99212 ==

== ENCOUNTER 2025-01-22 07:22 | Outpatient (REF) | payer MEDICARE, SELFPAY ==
[2025-01-22 10:20] LABS: Hematocrit 44.5 % (42.0-52.0); Hemoglobin 15.1 g/dl (14.0-18.0); Mean Corpuscular HGB Conc 33.9 g/dl (31.0-36.0); Mean Corpuscular Hemoglobin 29.5 pg (27.0-33.0); Mean Corpuscular Volume 87.1 fL (80.0-98.0); NRBC Abs Auto 0.000 X10*3/uL (0.0-0.012); NRBC Pct Auto 0.0 /100WBC (0.0-0.2); Platelet Count 182 X10*3/uL (160-400); Red Blood Count 5.11 X10*6/uL (4.60-5.80); White Blood Count 5.8 X10*3/uL (4.8-10.8)
[2025-01-22 10:52] LABS: Appearance Urine Turbid; Glucose Urine UA Negative (Negative); PH 5.0 (5.0-9.0); Specific Gravity - Urine 1.025 (1.005-1.025); UMIC TRIGGER UA YES
[2025-01-22 11:01] LABS: Alanine Aminotransferase 20 U/L (0-40); Albumin Level 4.5 g/dL (3.5-5.0); Alkaline Phosphatase 65 U/L (39-117); Anion Gap 10 (12-20); Aspartate Amino Transferase 20 U/L (5-37); Blood Urea Nitrogen 38 mg/dL (9-16); Calcium 10.0 mg/dL (8.4-10.2); Carbon Dioxide 27 mmol/L (22-29); Chloride 109 mmol/L (96-108); Cholesterol 145 mg/dL (<200); Estimated Glomerular Filt Rate 49; HDL Cholesterol 49 mg/dL (>40); Potassium 4.6 mmol/L (3.3-5.1); Sodium 141 mmol/L (135-145); Total Protein 7.5 g/dL (6.5-8.0); Triglycerides 145 mg/dL (<150)
[2025-01-22 11:07] LABS: Thyroid Stimulating Hormone 2.15 uIU/mL (0.32-4.0)
== END 2025-01-22 07:23 | disposition home or self-care (01) ==
LOC: HO.HMGCLDS 07:22
PROVIDERS: PCP Internal Medicine; Visit Provider Internal Medicine
DX: I35.1 Nonrheumatic aortic (valve) insufficiency (principal); I10 Essential (primary) hypertension; Z12.5 Encounter for screening for malignant neoplasm of prostate
CPT/HCPCS: 36415; 80048; 80061; 80076; 81001; 84153; 84443; 85027